=== PATIENT | male | born 1955 | race Caucasian/White ===

== ENCOUNTER 2023-07-26 09:14 | Outpatient (OUT) | payer MEDICARE, OTHER, SELFPAY ==
[2023-07-27 04:07] LABS: PSA, Free 0.48 ng/mL; Prostate Specific Ag 4.8 ng/mL (0.0-4.0)
== END 2023-07-26 09:15 | disposition home or self-care (01) ==
LOC: LAB 09:22
PROVIDERS: PCP Family Medicine; Visit Provider Urology
DX: R97.20 Elevated prostate specific antigen [PSA] (principal)
CPT/HCPCS: 36415; 84153; 84154

== ENCOUNTER 2024-03-10 09:23 | Outpatient (OUT) | payer MEDICARE, OTHER, SELFPAY ==
[2024-03-11 04:08] LABS: PSA, Free 0.48 ng/mL; Prostate Specific Ag 3.8 ng/mL (0.0-4.0)
== END 2024-03-10 09:24 | disposition home or self-care (01) ==
LOC: LAB 09:26
PROVIDERS: PCP Family Medicine; Visit Provider Urology
DX: R97.20 Elevated prostate specific antigen [PSA] (principal)
CPT/HCPCS: 36415; 84153; 84154

== ENCOUNTER 2024-06-30 10:41 | Outpatient (OUT) | payer MEDICARE, OTHER, SELFPAY ==
--- OUTSIDE RECORDS SUMMARY | 2024-06-30 10:47 | XMS_ITS | CCD ---
Author Organization [facility] Care Team Providers Care Automobile Body Repairer Name Role Phone Edouard Ly Primary Care Physician JESSE .TELMA Admitting Unavailable LUE ., TELMA Flower Attending Unavailable ELIASY ., DR NUNN Primary Care Unavailable LUE ., TELMA Flower Consulting Unavailable HOY ., DR NUNN Admitting Unavailable HOY ., DR NUNN Attending Unavailable HOY ., DR NUNN Consulting Unavailable HOY ., DR NUNN Admitting Unavailable HOY ., DR NUNN Attending Unavailable HOY ., DR NUNN Consulting Unavailable MD Telma Molina Attending Provider MD Edouard Ly Primary Care Provider [phone] Edouard Ly Primary Care Unavailable Telma Molina Attending Unavailable Telma Molina Admitting Unavailable Telma Molina. Attending Unavailable Telma Molina. Attending Unavailable Telma Molina Attending Unavailable Allergies Allergy Classification Reported Allergen(s) Allergy Type Date of Onset Reaction(s) Facility (1 source) No Known Medication Allergies; Translations: [No Known Medication Allergies] Propensity to adverse reactions (disorder) [facility] Repository Medications Current Medications Medication Drug Class(es) Dates Sig (Normalized) Sig (Original) cefuroxime 250 mg oral tablet (4 sources) Cephalosporin Antibacterial Start: 08-15-20 cefuroxime 250 mg Tab Refills(s) 0 Start Date: 08/15/22 Status: Ordered hydroCHLOROthiazide 25 mg oral tablet (4 sources) Thiazide Diuretic Start: 08-15-20 hydrochlorothiazide 25 mg Tab Refills(s) 0 Start Date: 08/15/22 Status: Ordered meloxicam 15 mg oral tablet (4 sources) Nonsteroidal Anti-inflammatory Drug Start: 08-15-20 meloxicam 15 mg Tab Refills(s) 0 Start Date: 08/15/22 Status: Ordered metoprolol tartrate 100 mg oral tablet (4 sources) beta-Adrenergic Oj Start: 08-15-20 take 1 mg by mouth twice daily metoprolol tartrate 100 mg Tab mg tab(s), Oral, BID, Refills(s) 0 Start Date: 08/15/22 Status: Ordered olmesartan medoxomil 40 mg oral tablet (4 sources) Angiotensin 2 Receptor Oj Start: 08-15-20 olmesartan 40 mg Tab Refills(s) 0 Start Date: 08/15/22 Status: Ordered potassium chloride 10 meq oral tablet (4 sources) Start: 08-15-20 Potassium Chloride (Eqv-K-Tab) 10 mEq oral tablet, extended release Refills(s) 0 Start Date: 08/15/22 Status: Ordered Problems Active Problems Problem Classification Problem Date Documented Date Episodic/Chronic Disorders of lipid metabolism (6 sources) Pure hypercholesterolemia; Translations: [Pure hypercholesterolemia, unspecified] Onset: 07-11-2022 08-15-2022 Chronic Essential hypertension (5 sources) Essential hypertension; Translations: [Essential (primary) hypertension] Onset: 07-11-2022 08-15-2022 Chronic Osteoarthritis (4 sources) Osteoarthritis Onset: 07-27-2021 08-15-2022 Chronic Other screening for suspected conditions (not mental disorders or infectious disease) (18 sources) Raised prostate specific antigen; Translations: [Elevated prostate specific antigen [PSA]] Onset: 07-10-2022 Episodic Past or Other Problems Problem Classification Problem Date Documented Da te Episodic/Chronic Diabetes mellitus without complication (1 source) Other abnormal glucose; Translations: [OTHER ABNORMAL GLUCOSE] Onset: 07-11-2022 Episodic Other nutritional; endocrine; and metabolic disorders (1 source) Overweight; Translations: [OVERWEIGHT] Onset: 07-11-2022 Episodic Residual codes; unclassified (1 source) Edema, unspecified; Translations: [EDEMA UNSPECIFIED] Onset: 07-11-2022 Episodic Results Test Name Value Interpretation Reference Range Facility Ambulatory Visit Summaryon 0 03-25-2024 Ambulatory Visit Summary Ambulatory Visit Summary MARK CHAVEZ :1955 Visit Date:03/25/2024 Ambulatory Visit Instructions Your Diagnosis Elevated PSA Your Care Team Attending Physician - Telma Molina MD Primary Care Physician - Edouard Ly MD This Is Your Medications List Contact prescribing physician if questions or concerns cefuroxime (cefuroxime 250 mg Tab) hydrochlorothiazide (hydrochlorothiazide 25 mg Tab) meloxicam (meloxicam 15 mg Tab) metoprolol (metoprolol tartrate 100 mg Tab) olmesartan (olmesartan 40 mg Tab) potassium chloride (Potassium Chloride (Eqv-K-Tab) 10 mEq oral tablet, extended release) Procedures Performed Hernia, History of hip surgery, Knee. Discharge Vitals Heart Rate (Peripheral) 55 Respiratory Rate 16 Blood Pressure 126/86 Height 184 cm Height 72 in Weight 107 kg Weight 235.4 lb BMI 31.6 What to do next Scheduled Follow-Up Appointments Saturday 8:45 AM EST With: Jesse ALONSO, Telma Mitchell Where: [facility] Urology Office/Clinic Noteon 03-25-2024 Urology Office/Clinic Note Urology Office/Clinic Note Chief Complaint 6 month follow up PSA F&T HPI Staff 6m PSA f/t DX: Elevated PSA *No Urology Meds NEG MRI Prostate 10/07/23 PSA f/t 03/10/24- 3.8 & 12.6% Dysuria: denies Incomplete bladder emptying: denies Hematuria: denies visible blood Frequency: once every 2-3 hours, depends on fluid intake Urgency: denies Nocturia: once a night Stream: denies hesitancy, steady stream Leaking: denies Post void dripping: sometimes Wearing pads/ Depends: denies Urge incontinence: denies Stress incontinence: denies Incontinence without Sensory Awareness: denies Abdominal pain: denies Flank pain: denies Sexual complaints: _ History of Present Illness Tests reviewed: reviewed UA, PSA, MRI I have reviewed the previous health record information and history for this patient from Dr. Molina. I have reviewed and verified the staff HPI to be accurate for this encounter. Review of Systems PHQ Score Initial Depression Screen Score: 0 SCORE ROS - Provider Constitutional: denies weight loss, denies hot flashes. Eyes: denies eye problems. Gastrointestinal: denies nausea, denies vomiting. Cardiovascular: denies chest pain or angina. Integumentary: no dryness Musculoskeletal: denies musculoskeletal symptoms. ENMT: denies otolaryngeal symptoms. Respiratory: no shortness of breath. Heme/Lymph: denies easy bleeding tendency, denies easy bruising tendency. Psychiatric: no confusion, no anxiety. Genitourinary: See HPI. Physical Exam Vitals & Measurements HR: 55(Peripheral) RR: 16 BP: 126/86 HT: 72 in HT: 184 cm WT: 107 kg WT: 235.4 lb BMI: 31.6 General Appearance: alert, no distress, well nourished, well developed male. Assessment/Plan 68 yo male following up to recent PSA level. Not on any blood thinners TEJAL 1, not interested in treatment. 1. Elevated PSA (R97.20: Elevated prostate specific antigen [PSA]) PSA 07/09/22 - 4.25 07/11/22 - 3.30 & 11.8% 01/21/23 - 3.70 & 8.1% 07/26/23 - 4.80 & 10% 03/10/24 - 3.80 & 12.6% PSAD 0.07 [facility] 08/15/22 - very low risk. Prostate MRI 10/07/23 [facility] - Prostate volume 57 mL. Neg for evidence of malignancy. Denies family hx of prostate cancer. Mother in her 90s, states his father in his sleep. IPSS 5 (5). UA today negative for blood and infection. Not taking any prostate medications. No urinary concerns. PSA has decreased from prior and percent free has increased, overall favorable. Will hold off on bx at this time. Will continue to monitor level closely for now. -PSA FT in 6 mos, avoid strenuous activity 4 days prior Follow-up With When Contact Information Jesse ALONSO, Telma Mitchell, URL, [facility] [address], [place] [address]- [phone] Additional Instructions: 6 mos w/ PSA Patient Education Prostate Cancer Screening Radha Salazar, personally scribed for Dr. Molina on 03/25/2024 10:07:52. . Documentation recorded by the scribe, Radha Ortega, accurately reflects the services(s) I performed and decisions made by me. Authenticated by Dr. Molina on 03/25/2024 23:04:51. Problem List/Past Medical History Ongoing Elevated PSA Essential hypertension Osteoarthritis Pure hypercholesterolemia, unspecified Historical No qualifying data Procedure/Surgical History Hernia, History of hip surgery, Knee. Medications cefuroxime 250 mg Tab hydrochlorothiazide 25 mg Tab meloxicam 15 mg Tab metoprolol tartrate 100 mg Tab, Oral, BID olmesartan 40 mg Tab Potassium Chloride (Eqv-K-Tab) 10 mEq oral tablet, extended release Allergies No Known Medication Allergies Social History Tobacco Former smoker, quit more than 30 days ago Tobacco Use:. Former smokeless tobacco user, quit more than 30 days ago Smokeless Tobacco Use:. Stopped age 32 Years. Household tobacco concerns: No. Yes, 03/25/2024 Family History Family history is negative Immunizations Vaccine Date Status Comments SARS-CoV-2 (COVID-19) mRNA-1273 vaccine 06/07/2021 Recorded 2022-08-15: TPV60 SARS-CoV-2 (COVID-19) mRNA-1273 vaccine 05/10/2021 Recorded 2022-08-15: TPV60 Lab Results Ambulatory Point of Care Results Bilirubin Urine Dipstick: Negative (03/25/24 09:11:00) Blood Urine Dipstick: Negative (03/25/24 09:11:00) Glucose Urine Dipstick: Negative (03/25/24 09:11:00) Ketones Urine Dipstick: Negative (03/25/24 09:11:00) Leukocytes Urine Dipstick: Negative (03/25/24 09:11:00) Nitrite Urine Dipstick: Negative (03/25/24 09:11:00) Protein Urine Dipstick: Negative (03/25/24 09:11:00) Specific [place] Urine Dipstick: <=1.005 (03/25/24 09:11:00) Urine Appearance Urine Dipstick: Clear (03/25/24 09:11:00) Urine Color Urine Dipstick: Yellow (03/25/24 09:11:00) Urobilinogen Urine Dipstick: Normal 0.2-1 EU/dl (03/25/24 09:11:00) pH Urine Dipstick: 5.5 (03/25/24 09:11:00) Normal [facility] Comment on above: Result Comment: Elec tronically Signed By: Jesse ALONSO, Telma Mitchell\.br\Date and Time Signed: 03/25/24 23:05 EDT\.br\Electronically Co-Signed By: Radha Ortega\.br\Date and Time Co-Signed: 03/25/24 10:08 EDT Lab Reportson 03-11-2024 Lab Reports [id number] FF Normal [facility] RAD - MRI Reporton RAD - MRI Report [id number] IFF Normal [facility] MR prostate wo/w conon 10-08 MR prostate wo/w con [facility] [place] [address] MRI Report Signed Patient: Mark Chavez MR#: [id number] 34 : 1955 Acct:[id number] Age/Sex: 68 / M ADM Date: 10/07/23 Loc: MR Room: Type: [facility] Attending Dr: Telma Molina MD Copies to: Telma Molina MD Ordering Provider: Telma Molina MD Date of Service: 10/07/23 MR/MR prostate wo/w con: R97.20 EXAMINATION: MR prostate wo/w con HISTORY: Elevated PSA COMPARISON: NONE TECHNIQUE: Multiparametric imaging of the prostate gland was performed with IV contrast. FINDINGS: Suboptimal evaluation due to blooming artifact from the patient's left hip prosthesis. Prostate Dimensions: 5.1 x 4.1 x 5.0 cm. Prostate Volume: 57 mL Peripheral Zone: Heterogenous inT2 signal suggestive of prior prostatitis. No suspicious T2 or ADC map abnormality is identified to suggest prostate malignancy. Central/Transitional Zone: BPH changes. Seminal Vesicles: Unremarkable Neurovascular bundles: Unremarkable. Lymphadenopathy: No evidence of lymphadenopathy. Bladder: No focal lesion. Bowel: Diverticulosis. Peritoneal Cavity: No free fluid. Bones: No suspicious bony lesion. MR/MR prostate wo/w con IMPRESSION: No MRI evidence of clinically significant prostate cancer. Impression dictated by: Onesimo Phillips Jr., D.O.10/08/2023 9:35 AM Dictation Location: [place] [address] Transcribed By: [facility] 10/08/23 0935 Dictated By: Onesimo Phillips Jr, DO 10/08/23 0917 Signed By: 10/08/2335 [facility] ISTAT XRay CREon 10-07-2023 Creatinine [Mass/Vol] 1.4 mg/dL High 0.6-1.3 [facility] Comment on above: Result Comment: ER/E SD physician is notified/shown all ISTAT results. Critical values may be confirmed by laboratory testing if deemed necessary by ER attending doctor. Performed By: #### I SCRE #### [address] ISTAT GFR 55.432 [facility] Comment on above: Result Comment: PERF ORMED BY: [place] [address] PATHOLOGIST [employer]CH[employer]IC JIGNESH SEARS M.D. Performed By: #### I SCRE #### [facility] [address] [place] [address] Provider Letteron 09-25-2023 Provider Letter (Inserted Image. Rocio ble to display) September 25, 2023 MARK CHAVEZ [address] [place] [id number] : 1955 [address] Phillips with radiology who recommends low residual diet starting 3 days prior to MRI (see list below). Foods Allowed on a Low Residue Diet refined grain products like white breads, cereals, and pastas (look for less than 2g of fibre per serving on label) white rice juices without pulp or seeds meats, fish, and eggs oil, margarine, butter, mayonnaise, and salad dressings fruit without peels or seeds and certain canned or well-cooked fruit (e.g., peeled apples, seedless peeled grapes, banana, cantaloupe, etc.) some soft, cooked vegetables (e.g., beets, beans, carrots, cucumber, eggplant, mushrooms, etc.) limit of 2 cups/day: milk, yogurt, puddings, cream based soups Foods to Avoid on a Low Residue Diet whole grain breads, cereals, and pastas (e.g., oatmeal, millet, buckwheat, flax, popcorn) raw vegetables the following vegetables, whether cooked or raw: broccoli, cauliflower, [place] sprouts, cabbage, kale, [place] chard dried fruit, berries, and other fruit with skin or seeds tough meats with gristle crunchy peanut butter (smooth is okay) seeds and nuts dried beans, peas, and lentils Normal [facility] Screenson 08-01-2023 Screens [id number] Normal [facility] Screens [id number] IFF Normal [facility] Ambulatory Visit Summaryon 1 09-30-2022 Ambulatory Visit Summary MARK CHAVEZ :1955 Visit Date:07/31/2023 Ambulatory Visit Instructions Your Diagnosis Elevated PSA Tests Performed Urnls Dip Stick Auto w/o Microscopy POC [id number] MRI Pelvis (Soft Tissue) w/ + w/o contrast -- Results Pending -- Please visit your patient portal for your results or contact your primary care physician. Your Care Team Attending Physician - Telma Molina MD Primary Care Physician - Edouard Ly MD This Is Your Medications List Contact prescribing physician if questions or concerns cefuroxime (cefuroxime 250 mg Tab) hydrochlorothiazide (hydrochlorothiazide 25 mg Tab) meloxicam (meloxicam 15 mg Tab) metoprolol (metoprolol tartrate 100 mg Tab) olmesartan (olmesartan 40 mg Tab) potassium chloride (Potassium Chloride (Eqv-K-Tab) 10 mEq oral tablet, extended release) Procedures Performed Hernia, History of hip surgery, Knee. Discharge Vitals Heart Rate (Peripheral) 70 Respiratory Rate 16 Blood Pressure 136/84 Height 184 cm Height 72 in Weight 107 kg Weight 235.4 lb BMI 31.6 What to do next You Need to Schedule the Following Appointments Follow Up with Jesse ALONSO, Telma Mitchell, QUIN, URO When: Where: Medications What How Much When Instructions Unchanged cefuroxime (cefuroxime 250 mg Tab) Contact prescribing physician if questions or concerns Unchanged hydrochlorothiazide (hydrochlorothiazide 25 mg Tab) Contact prescribing physician if questions or concerns Unchanged meloxicam (meloxicam 15 mg Tab) Contact prescribing physician if questions or concerns Unchanged metoprolol (metoprolol tartrate 100 mg Tab) 2 times a day Contact prescribing physician if questions or concerns Unchanged olmesartan (olmesartan 40 mg Tab) Contact prescribing physician if questions or concerns Unchanged potassium chloride (Potassium Chloride (Eqv-K-Tab) 10 mEq oral tablet, extended release) Contact prescribing physician if questions or concerns Test Results Urnls Dip Stick Auto w/o Microscopy POC [id number] (07/31/2023) Bilirubin Urine Dipstick - Negative Blood Urine Dipstick - Negative Glucose Urine Dipstick - Negative Ketones Urine Dipstick - Negative Leukocytes Urine Dipstick - Negative Nitrite Urine Dipstick - Negative Protein Urine Dipstick - Negative Specific [place] Urine Dipstick - 1.015 Urine Appearance Urine Dipstick - Clear Urine Color Urine Dipstick - Yellow Urobilinogen Urine Dipstick - Normal 0.2-1 EU/dl pH Urine Dipstick - 7 Allergies No Known Medication Allergies Problems Ongoing - Any problem that you are currently receiving treatment for. Elevated PSA Essential hypertension Osteoarthritis Pure hypercholesterolemia, unspecified Patient Survey You may receive a survey via text or e-mail asking about your office visit. Please share your experience with us by completing your survey. We appreciate your feedback and thank you for choosing us for your care. Education Materials Prostate Cancer Screening Prostate cancer screening is testing that is done to check for the presence of prostate cancer in men. The prostate gland is a walnut-sized gland that is located below the bladder and in front of the rectum in males. The function of the prostate is to add fluid to semen during ejaculation. Prostate cancer is one of the most common types of cancer in men. Who should have prostate cancer screening? Screening recommendations vary based on age and other risk factors, as well as between the professional organizations who make the recommendations. In general, screening is recommended if: ? You are age 50 to 70 and have an average risk for prostate cancer. You should talk with your health care provider about your need for screening and how often screening should be done. Because most prostate cancers are slow growing and will not cause , screening in this age group is generally reserved for men who have a 10- to 15-year life expectancy. ? You are younger than age 50, and you have these risk factors: ? Having a father, brother, or uncle who has been diagnosed with prostate cancer. The risk is higher if your family member's cancer occurred at an early age or if you have multiple family members with prostate cancer at an early age. ? Being a male who is Black or is of [place] or sub-Saharan descent. In general, screening is not recommended if: ? You are younger than age 40. ? You are between the ages of 40 and 49 and you have no risk factors. ? You are 70 years of age or older. At this age, the risks that screening can cause are greater than the benefits that it may provide. If you are at high risk for prostate cancer, your health care provider may recommend that you have screenings more often or that you start screening at a younger age. How is screening for prostate cancer done? The recommended prostate cancer screening test is a blood test called the prostate-specif (more content not included)... Normal [facility] Patient Educationon 07-31-20 Patient Education Oncology Prostate Cancer Screening Prostate cancer screening is testing that is done to check for the presence of prostate cancer in men. The prostate gland is a walnut-sized gland that is located below the bladder and in front of the rectum in males. The function of the prostate is to add fluid to semen during ejaculation. Prostate cancer is one of the most common types of cancer in men. Who should have prostate cancer screening? Screening recommendations vary based on age and other risk factors, as well as between the professional organizations who make the recommendations. In general, screening is recommended if: ? You are age 50 to 70 and have an average risk for prostate cancer. You should talk with your health care provider about your need for screening and how often screening should be done. Because most prostate cancers are slow growing and will not cause , screening in this age group is generally reserved for men who have a 10- to 15-year life expectancy. ? You are younger than age 50, and you have these risk factors: ? Having a father, brother, or uncle who has been diagnosed with prostate cancer. The risk is higher if your family member's cancer occurred at an early age or if you have multiple family members with prostate cancer at an early age. ? Being a male who is Black or is of [place] or sub-Saharan descent. In general, screening is not recommended if: ? You are younger than age 40. ? You are between the ages of 40 and 49 and you have no risk factors. ? You are 70 years of age or older. At this age, the risks that screening can cause are greater than the benefits that it may provide. If you are at high risk for prostate cancer, your health care provider may recommend that you have screenings more often or that you start screening at a younger age. How is screening for prostate cancer done? The recommended prostate cancer screening test is a blood test called the prostate-specific antigen (PSA) test. PSA is a protein that is made in the prostate. As you age, your prostate naturally produces more PSA. Abnormally high PSA levels may be caused by: ? Prostate cancer. ? An enlarged prostate that is not caused by cancer (benign prostatic hyperplasia, or BPH). This condition is very common in older men. ? A prostate gland infection (prostatitis) or urinary tract infection. ? Certain medicines such as male hormones (like testosterone) or other medicines that raise testosterone levels. A rectal exam may be done as part of prostate cancer screening to help provide information about the size of your prostate gland. When a rectal exam is performed, it should be done after the PSA level is drawn to avoid any effect on the results. Depending on the PSA results, you may need more tests, such as: ? A physical exam to check the size of your prostate gland, if not done as part of screening. ? Blood and imaging tests. ? A procedure to remove tissue samples from your prostate gland for testing (biopsy). This is the only way to know for certain if you have prostate cancer. What are the benefits of prostate cancer screening? ? Screening can help to identify cancer at an early stage, before symptoms start and when the cancer can be treated more easily. ? There is a small chance that screening may lower your risk of dying from prostate cancer. The chance is small because prostate cancer is a slow-growing cancer, and most men with prostate cancer from a different cause. What are the risks of prostate cancer screening? The main risk of prostate cancer screening is diagnosing and treating prostate cancer that would never have caused any symptoms or problems. This is called overdiagnosisand overtreatment. PSA screening cannot tell you if your PSA is high due to cancer or a different cause. A prostate biopsy is the only procedure to diagnose prostate cancer. Even the results of a biopsy may not tell you if your cancer needs to be treated. Slow-growing prostate cancer may not need any treatment other than monitoring, so diagnosing and treating it may cause unnecessary stress or other side effects. Questions to ask your health care provider ? When should I start prostate cancer screening? ? What is my risk for prostate cancer? ? How often do I need screening? ? What type of screening tests do I need? ? How do I get my test results? ? What do my results mean? ? Do I need treatment? Where to find more information ? The [place] [employer]: www.cancer.org ? [employer]: www.auanet.org Contact a health care provider if: ? You have difficulty urinating. ? You have pain when you urinate or ejaculate. ? You have blood in your urine or semen. ? You have pain in your back or in the area of your prostate. Summary ? Prostate cancer is a common type of cancer in men. The prostate gland is located below the bladder and in front of the rectum. This gland adds flu (more content not included)... Normal [facility] Urology Office/Clinic Noteon 07-31-2023 Urology Office/Clinic Note Chief Complaint 6m PSA F/T HPI Staff 6m PSA F/T DX:Elevated PSA *No Urology Meds PSA 07/26/23- 4.8 & 10.0% Still getting up 1-3x/night to void. Increased with alcohol intake in the evening. Denies complaints with urinary stream. No concerns at this time. IPSS 5 History of Present Illness Tests reviewed: Reviewed UA and PSA. I have reviewed the previous health record information and history for this patient from Dr. Molina. I have reviewed and verified the staff HPI to be accurate for this encounter. There have been no associated fever, chills, flank pain, or blood in the urine. Denies any urinary infections since last encounter. Review of Systems ROS - Provider Constitutional: denies weight loss, denies hot flashes. Eyes: denies eye problems. Gastrointestinal: denies nausea, denies vomiting. Cardiovascular: denies chest pain or angina. Integumentary: no dryness Musculoskeletal: denies musculoskeletal symptoms. ENMT: denies otolaryngeal symptoms. Respiratory: no shortness of breath. Heme/Lymph: denies easy bleeding tendency, denies easy bruising tendency. Psychiatric: no confusion, no anxiety. Genitourinary: See HPI. Physical Exam Vitals & Measurements HR: 70(Peripheral) RR: 16 BP: 136/84 HT: 72 in HT: 184 cm WT: 107 kg WT: 235.4 lb BMI: 31.6 General Appearance: alert, no distress, well nourished, well developed male. Genitourinary: Flank Pain: none. Bladder: nonpalpable. Prostate: mildly enlarged, no firm nodules, non tender Assessment/Plan 68 yo male following up to recent PSA level. Not on any blood thinners Portions of this record may have been created with voice recognition artificial intelligence software, specifically [employer], iodine and or [employer]. Substitutions may have occurred due to the inherent limitations of voice recognition and artificial intelligence software. 1. Elevated PSA (R97.20: Elevated prostate specific antigen [PSA]) PSA: 07/09/22 - 4.25 07/11/22 - 3.30 & 11.8% 01/21/23 - 3.70 & 8.1% 07/26/23 - 4.8 & 10% Select MDx 08/15/22 - very low risk. Denies family hx of prostate cancer. Mother in her 90s, states his father in his sleep. UA today neg IPSS 5 (2) Not taking any prostate medications. No urinary concerns. Low percent free is unfavorable. Pt does understand there is a chance of prostate cancer being present. Discussed continuing close surveillance vs scheduling an MRI which could indicate bx if there are suspected lesions. -Pt does have knee replaced. Unsure if it is MRI compatible. Does set off metal detectors when the pt goes through them. Repeat PSA vs bx if pt is unable to have MRI done. We discussed risks of MRI fusion prostate biopsy approaches including transrectal and transperineal. Risks of the procedure were discussed to include but not be limited to bleeding, pain, infection (higher, including sepsis with transrectal approach), difficulties with urination, injury to the urethra, prostate or bladder or surrounding tissues, injury from positioning on the table, swelling and bruising of the skin, and need for further procedures. MAURISIO today: mildly enlarged, normal prostate -Obtain MRI prostate. Call with results and schedule MRI fusion TP biopsy if lesion noted. If neg, pt to determine if he wants to proceed with standard bx vs repeat PSA F/T in 6 mths I spent 30 minutes today with the patient: reviewing tests in preparation to see and discuss them with the patient, documenting clinical information in the electronic health records, and care coordination. Time was spent performing a medical exam and evaluation, counseling and educating the patient, and ordering tests in caring for the patient. Follow-up With When Contact Information Jesse ALONSO, Telma Mitchell, URL, URO Additional Instructions: MRI Patient Education Prostate Cancer Screening I, Naya Llanos, personally scribed for Dr. Molina on 07/31/2023 09:43:03. . Documentation recorded by the scribe, Juana Llanos, accurately reflects the services(s) I performed and decisions made by me. Authenticated by Dr. Molina on 07/31/2023 16:21:32. Problem List/Past Medical History Ongoing Elevated PSA Essential hypertension Osteoarthritis Pure hypercholesterolemia, unspecified Historical No qualifying data Procedure/Surgical History Hernia, History of hip surgery, Knee. Medications cefuroxime 250 mg Tab hydrochlorothiazide 25 mg Tab meloxicam 15 mg Tab metoprolol tartrate 100 mg Tab, Oral, BID olmesartan 40 mg Tab Potassium Chloride (Eqv-K-Tab) 10 mEq oral tablet, extended release Allergies No Known Medication Allergies Social History Tobacco Former smoker, quit more than 30 days ago Tobacco Use:. Former smokeless tobacco user, quit more than 30 days ago Smokeless Tobacco Use:. Stopped age 32 Years. Household tobacco concerns: No. Yes, 07/31/2023 Family Hist (more content not included)... Normal [facility] Comment on above: Result Comment: Elec tronically Signed By: Telma Molina MD\.br\Date and Time Signed: 07/31/23 16:21 EST\.br\Electronically Co-Signed By: Naya Llanos\.br\Date and Time Co-Signed: 07/31/23 09:43 EST Lab Reportson 07-30-2023 Lab Reports [id number] IFF Normal [facility] PSA, FREE AND TOTAL RATIOon 01-22-2023 % Free PSA 8.1 % Normal [facility] Comment on above: Result Comment: The table below lists the probability of prostate cancer for men with non-suspicious MAURISIO results and total PSA between 4 and 10 ng/mL, by patient age (Nkechi et al, LALO 1998, 279:1542). % Free PSA 50-64 yr 65-75 yr 0.00-10.00% 56% 55% 10.01-15.00% 24% 35% 15.01-20.00% 17% 23% 20.01-25.00% 10% 20% >25.00% 5% 9% Please note: Nkechi et al did not make specific recommendations regarding the use of percent free PSA for any other population of men. Performed By: #### P SAFREE #### [facility] [address] [place] [address] Dr. Cheryl Pickering Prostate specific Ag [Mass/Vol] 3.7 ng/mL Normal 0.0-4.0 [facility] Comment on above: Result Comment: Denise arora ECLIA methodology. . According to the [employer], Serum PSA should decrease and remain at undetectable levels after radical prostatectomy. The AUA defines biochemical recurrence as an initial PSA value 0.2 ng/mL or greater followed by a subsequent confirmatory PSA value 0.2 ng/mL or greater. Values obtained with different assay methods or kits cannot be used interchangeably. Results cannot be interpreted as absolute evidence of the presence or absence of malignant disease. Performed By: #### P SAFREE #### [facility] [address] [address] [address] Cheryl Pickering PSA, Free 0.30 ng/mL Normal N/A [facility] Comment on above: Result Comment: Denise arora ECLIA methodology. Performed By: #### P SAFREE #### [facility] [address] [address] [address] Cheryl Pickering PSA, FREE AND TOTAL RATIOon 07-11-2022 % Free PSA 11.8 % Normal [facility] Comment on above: Result Comment: The table below lists the probability of prostate cancer for men with non-suspicious MAURISIO results and total PSA between 4 and 10 ng/mL, by patient age (Nkechi et al, LALO 1998, [id number]). % Free PSA 50-64 yr 65-75 yr 0.00-10.00% 56% 55% 10.01-15.00% 24% 35% 15.01-20.00% 17% 23% 20.01-25.00% 10% 20% >25.00% 5% 9% Please note: Nkechi et al did not make specific recommendations regarding the use of percent free PSA for any other population of men. Performed By: #### P SAFREE #### [facility] [address] [place] [address] Dr. Cheryl Pickering Prostate specific Ag [Mass/Vol] 3.3 ng/mL Normal 0.0-4.0 [facility] Comment on above: Result Comment: Roch u[place]es ECLIA methodology. . According to the [employer], Serum PSA should decrease and remain at undetectable levels after radical prostatectomy. The AUA defines biochemical recurrence as an initial PSA value 0.2 ng/mL or greater followed by a subsequent confirmatory PSA value 0.2 ng/mL or greater. Values obtained with different assay methods or kits cannot be used interchangeably. Results cannot be interpreted as absolute evidence of the presence or absence of malignant disease. Performed By: #### P SAFREE #### [facility] [address] [place] [address] Dr. Cheryl Pickering PSA, Free 0.39 ng/mL Normal N/A [facility] Comment on above: Result Comment: [place] ECLIA methodology. Performed By: #### P SAFREE #### [facility] [address] [place] [address] Dr. Cheryl Pickering INSULINon 07-10-2022 Insulin 5.9 uIU/mL Normal 2.6-24.9 [facility] Comment on above: Performed By: #### I NSULIN #### [facility] [address] [place] [address] Dr. Cheryl Pickering OCC BLD IMMUNO SCREENon 06-23 OCCULT BLOOD Negative Normal NEGATIVE [facility] Comment on above: Performed By: #### L IPID, TSH, T7, CMP, URIC #### [facility] [address] [place] [address] Dr. Cheryl Pickering CBC AUTO DIFFon 07-09-2022 BASO # 0.1 103/ul Normal 0.0-0.1 [facility] Comment on above: Performed By: #### C BC #### [facility] [address] [place] [address] Dr. Cherly Pickering Basophils/100 WBC (Bld) 1.1 % Normal 0.2-2.0 [facility] Comment on above: Performed By: #### C BC #### [facility] [address] [place] [address] Dr. Cheryl Pickering EO # 0.2 103/ul Normal 0.0-0.7 [facility] Comment on above: Performed By: #### C BC #### [facility] [address] [place] [address] Dr. Cheryl Pickering Eosinophils/100 WBC (Bld) 3.3 % Normal 0.9-7.0 [facility] Comment on above: Performed By: #### C BC #### [facility] [address] [place] [address] Dr. Cheryl Pickering Erythrocyte distribution width (RBC) [Ratio] 12.0 % Normal 11.0-15.0 [facility] Comment on above: Performed By: #### C BC #### [facility] [address] [place] [address] Dr. Cheryl Pickering Hematocrit (Bld) [Volume fraction] 42.0 % Normal 42.0-54.0 [facility] Comment on above: Performed By: #### C BC #### [facility] [address] [place] [address] Dr. Cheryl Pickering Hemoglobin (Bld) [Mass/Vol] 14.7 g/dL Normal 14.0-18.0 [facility] Comment on above: Performed By: #### C BC #### [facility] [address] [place] [address] Dr. Cheryl Pickering IG # 0.03 10e3/ul Normal 0.00-0.03 [facility] Comment on above: Performed By: #### C BC #### [facility] [address] [place] [address] Dr. Cheryl Pickering IG % 0.5 % Normal 0.0-0.5 [facility] Comment on above: Performed By: #### C BC #### [facility] [address] [place] [address] Dr. Cheryl Pickering LYMPH # 1.4 103/ul Normal 1.2-3.8 [facility] Comment on above: Performed By: #### C BC #### [facility] [address] [place] [address] Dr. Cheryl Pickering Lymphocytes/100 WBC (Bld) 23.6 % Normal 20.5-60.0 [facility] Comment on above: Performed By: #### C BC #### [facility] [address] [place] [address] Dr. Cheryl Pickering MANUAL DIFF REQ NO Normal [facility] Comment on above: Performed By: #### C BC #### [facility] [address] [place] [address] Dr. Cheryl Pickering MCH (RBC) [Entitic mass] 33.3 pg Normal 25.9-34.0 [facility] Comment on above: Performed By: #### C BC #### [facility] [address] [place] [address] Dr. Cheryl Pickering MCHC (RBC) [Mass/Vol] 35.0 g/dL Normal 29.9-35.2 [facility] Comment on above: Performed By: #### C BC #### [facility] [address] [place] [address] Dr. Cheryl Pickering MCV (RBC) [Entitic vol] 95.2 fL Critically high 80.0-94.0 [facility] Comment on above: Performed By: #### C BC #### [facility] [address] [place] [address] Dr. Cheryl Pickering MONO # 0.7 103/ul Normal 0.3-0.8 [facility] Comment on above: Performed By: #### C BC #### [facility] [address] [place] [address] Dr. Cheryl Pickering Monocytes/100 WBC (Bld) 12.1 % Critically high 1.7-12.0 [facility] Comment on above: Performed By: #### C BC #### [facility] [address] [place] [address] Dr. Cheryl Pickering NEUT # 3.4 103/ul Normal 1.4-6.5 [facility] Comment on above: Performed By: #### C BC #### [facility] [address] [place] [address] Dr. Cheryl Pickering Neutrophils/100 WBC (Bld) 59.4 % Normal 43.0-75.0 [facility] Comment on above: Performed By: #### C BC #### [facility] [address] [place] [address] Dr. Cheryl Pickering Platelet mean volume (Bld) [Entitic vol] 9.3 fL Critically low 9.5-13.5 [facility] Comment on above: Performed By: #### C BC #### [facility] [address] [place] [address] Dr. Cheryl Pickering PLT 236 103/ul Normal 150-450 [facility] Comment on above: Performed By: #### C BC #### [facility] [address] [place] [address] Dr. Cheryl Pickering RBC 4.41 106/ul Critically low 4.70-6.[address] [facility] Comment on above: Performed By: #### C BC #### [facility] [address] [place] [address] Dr. Cheryl Pickering WBC 5.7 103/ul Normal 4.0-11.0 [facility] Comment on above: Performed By: #### C BC #### [facility] [address] [place] [address] Dr. Cheryl Pickering FREE THYROXINE INDEX T7on FTI 2.59 Normal 1.30-4.50 [facility] Comment on above: Performed By: #### L IPID, TSH, T7, CMP, URIC #### [facility] [address] [address] [address] Cheryl Pickering T3U 35.0 % Normal 33.0-40.0 [facility] Comment on above: Performed By: #### L IPID, TSH, T7, CMP, URIC #### [facility] [address] [address] [address] Cheryl Pickering T4 [Mass/Vol] 7.40 ug/dL Normal 4.50-12.10 [facility] Comment on above: Performed By: #### L IPID, TSH, T7, CMP, URIC #### [facility] [address] [place] [address] Dr. Cheryl Pickering GLYCOHEMOGLOBIN A1Con 2021 ADA RECOMMENDATION SEE BELOW Normal [facility] Comment on above: Result Comment: ADA RECOMMENDED LIMIT 4.0 - 6.0 ADA THERAPEUTIC TARGET < 7.0 ACTION SUGGESTED > 7.0 Performed By: #### L IPID, TSH, T7, CMP, URIC #### [facility] [address] [address] [address] Cheryl Pickering Glucose [Mass/Vol] 111 mg/dL Normal [facility] Comment on above: Performed By: #### L IPID, TSH, T7, CMP, URIC #### [facility] [address] [address] [address] Cheryl Pickering HbA1c (Bld) [Mass fraction] 5.5 % Normal 4.5-6.2 [facility] Comment on above: Performed By: #### L IPID, TSH, T7, CMP, URIC #### [facility] [address] [place] [address] Dr. Cheryl Pickering LIPID PROFILEon 07-09-2022 CHOL-HDL RATIO NORM SEE BELOW Normal [facility] Comment on above: Result Comment: 3.3 - 4.4 LOW RISK 4.4 - 7.1 AVERAGE RISK 7.1 - 11.0 MODERATE RISK >11.0 HIGH RISK Performed By: #### L IPID, TSH, T7, CMP, URIC #### [facility] [address] [address] [address] Cheryl Pickering Cholesterol [Mass/Vol] 220 mg/dL Critically high <=200 [facility] Comment on above: Performed By: #### L IPID, TSH, T7, CMP, URIC #### [facility] [address] [address] [address] Cheryl Pickering Cholesterol in HDL [Mass/Vol] 44 mg/dL Normal 40-60 [facility] Comment on above: Performed By: #### L IPID, TSH, T7, CMP, URIC #### [facility] [address] [address] [address] Cheryl Pickering Cholesterol in LDL [Mass/Vol] 146.6 mg/dL Normal [facility] Comment on above: Performed By: #### L IPID, TSH, T7, CMP, URIC #### [facility] [address] [address] [address] Cheryl Pickering Cholesterol.total/Ch olesterol in HDL [Mass ratio] 5.0 {ratio} Normal [facility] Comment on above: Performed By: #### L IPID, TSH, T7, CMP, URIC #### [facility] [address] [address] [address] Cheryl Pickering HDL NORMAL > or = 60 mg/dl - LO W CARDIOVASCULAR RISK <40 mg/dl - HIGH CARDIOVASCULAR RISK Normal [facility] Comment on above: Performed By: #### L IPID, TSH, T7, CMP, URIC #### [facility] [address] [address] [address] Cheryl Pickering LDL CALC NORMAL SEE BELOW Normal [facility] Comment on above: Result Comment: <100 mg/dl OPTIMAL 100 - 129 mg/dl NEAR OR ABOVE OPTIMAL 130 - 159 mg/dl BORDERLINE HIGH 160 - 189 mg/dl HIGH >190 mg/dl VERY HIGH Performed By: #### L IPID, TSH, T7, CMP, URIC #### [facility] [address] [address] [address] Cheryl Pickering Triglyceride [Mass/Vol] 147 mg/dL Normal <=150 [facility] Comment on above: Performed By: #### L IPID, TSH, T7, CMP, URIC #### [facility] [address] [address] [address] Cheryl Pickering VLDL CALC 29.4 mg/dL Normal [facility] Comment on above: Performed By: #### L IPID, TSH, T7, CMP, URIC #### [facility] [address] [address] [address] Cheryl Pickering PROF 14(COMP METB)on 022 Albumin [Mass/Vol] 3.9 g/dL Normal 3.4-5.[address] [facility] Comment on above: Performed By: #### L IPID, TSH, T7, CMP, URIC #### [facility] [address] [place] [address] Dr. Cheryl Pickering Albumin/Globulin [Mass ratio] 1.1 {ratio} Normal [facility] Comment on above: Performed By: #### L IPID, TSH, T7, CMP, URIC #### [facility] [address] [place] [address] Dr. Cheryl Pickering ALP [Catalytic activity/Vol] 57 U/L Normal 46-116 [facility] Comment on above: Performed By: #### L IPID, TSH, T7, CMP, URIC #### [facility] [address] [place] [address] Dr. Cheryl Pickering ALT [Catalytic activity/Vol] 21 U/L Normal 16-63 [facility] Comment on above: Performed By: #### L IPID, TSH, T7, CMP, URIC #### [facility] [address] [address] [address] Cheryl Pickering Anion gap [Moles/Vol] 10.4 mmol/L Normal [facility] Comment on above: Performed By: #### L IPID, TSH, T7, CMP, URIC #### [facility] [address] [place] [address] Dr. Cheryl Pickering AST [Catalytic activity/Vol] 21 U/L Normal 15-37 [facility] Comment on above: Performed By: #### L IPID, TSH, T7, CMP, URIC #### [facility] [address] [place] [address] Dr. Cheryl Pickering Bilirubin [Mass/Vol] 0.8 mg/dL Normal 0.2-1.0 [facility] Comment on above: Performed By: #### L IPID, TSH, T7, CMP, URIC #### [facility] [address] [place] [address] Dr. Cheryl Pickering Calcium [Mass/Vol] 10.1 mg/dL Normal 8.5-10.[address] [facility] Comment on above: Performed By: #### L IPID, TSH, T7, CMP, URIC #### [facility] [address] [place] [address] Dr. Cheryl Pickering Chloride [Moles/Vol] 103 mmol/L Normal 98-107 [facility] Comment on above: Performed By: #### L IPID, TSH, T7, CMP, URIC #### [facility] [address] [place] [address] Dr. Cheryl Pickering CO2 [Moles/Vol] 28.3 mmol/L Normal 21.0-32.0 [facility] Comment on above: Performed By: #### L IPID, TSH, T7, CMP, URIC #### [facility] [address] [place] [address] Dr. Cheryl Pickering Creatinine [Mass/Vol] 1.26 mg/dL Normal 0.70-1.30 [facility] Comment on above: Performed By: #### L IPID, TSH, T7, CMP, URIC #### [facility] [address] [place] [address] Dr. Cheryl Pickering EGFR-AF LAO >60 Normal >=60 [facility] Comment on above: Performed By: #### L IPID, TSH, T7, CMP, URIC #### [facility] [address] [place] [address] Dr. Cheryl Pickering EGFR-NON AF LAO 57 mL/min/1.73m2 Critically low >=60 [facility] Comment on above: Performed By: #### L IPID, TSH, T7, CMP, URIC #### [facility] [address] [address] [address] Cheryl Pickering Globulin (S) [Mass/Vol] 3.5 g/dL Normal [facility] Comment on above: Performed By: #### L IPID, TSH, T7, CMP, URIC #### [facility] [address] [place] [address] Dr. Cheryl Pickering Glucose [Mass/Vol] 103 mg/dL Normal 74-106 [facility] Comment on above: Performed By: #### L IPID, TSH, T7, CMP, URIC #### [facility] [address] [place] [address] Dr. Cheryl Pickering Potassium [Moles/Vol] 4.7 mmol/L Normal 3.5-5.1 [facility] Comment on above: Performed By: #### L IPID, TSH, T7, CMP, URIC #### [facility] [address] [place] [address] Dr. Cheryl Pickering Protein [Mass/Vol] 7.4 g/dL Normal 6.4-8.2 [facility] Comment on above: Performed By: #### L IPID, TSH, T7, CMP, URIC #### [facility] [address] [place] [address] Dr. Cheryl Pickering Sodium [Moles/Vol] 137 mmol/L Normal 136-145 [facility] Comment on above: Performed By: #### L IPID, TSH, T7, CMP, URIC #### [facility] [address] [place] [address] Dr. Cheryl Pickering Urea nitrogen [Mass/Vol] 23.0 mg/dL Critically high 7.0-18.0 [facility] Comment on above: Performed By: #### L IPID, TSH, T7, CMP, URIC #### [facility] [address] [place] [address] Dr. Cheryl Pickering Urea nitrogen/Creatinine [Mass ratio] 18.3 mg/mg Normal [facility] Comment on above: Performed By: #### L IPID, TSH, T7, CMP, URIC #### [facility] [address] [place], [place] [address] Dr. Cheryl Pickering TSHon 07-09-2022 TSH 1.928 uIU/mL Normal 0.358-3.740 [facility] Comment on above: Performed By: #### L IPID, TSH, T7, CMP, URIC #### [facility] [address] [place], [place] [address] Dr. Cheryl Pickering URIC ACID SERUMon 07-09-2022 Urate [Mass/Vol] 8.3 mg/dL Critically high 3.5-7.2 [facility] Comment on above: Performed By: #### L IPID, TSH, T7, CMP, URIC #### [facility] [address] [address] [address] Cheryl Pickering Vital Signs Date Time Vital Sign Value Performing Clinician Faci lity 03-25-2024 09:13-0400 Blood Pressure Location Telma Lue [facility] 03-25-2024 09:13-0400 Diastolic blood pressure 86 mm[Hg] Telma Lue [facility] 03-25-2024 09:13-0400 Heart rate 55 /min Telma Lue [facility] 03-25-2024 09:13-0400 Respiratory rate 16 /min Telma Lue [facility] 03-25-2024 09:13-0400 Systolic blood pressure 126 mm[Hg] Telma Lue [facility] 07-31-2023 08:42-0500 Blood Pressure Location Telma Lue [facility] 07-31-2023 08:42-0500 Diastolic blood pressure 84 mm[Hg] Telma Lue [facility] 07-31-2023 08:42-0500 Heart rate 70 /min Telma Lue [facility] 07-31-2023 08:42-0500 Respiratory rate 16 /min [facility] [facility] 07-31-2023 08:42-0500 Systolic blood pressure 136 mm[Hg] Telma Lue [facility] 01-23-2023 10:09-0400 Blood Pressure Location Telma Lue [facility] 01-23-2023 10:09-0400 Diastolic blood pressure 78 mm[Hg] Telma Lue [facility] 01-23-2023 10:09-0400 Heart rate 80 /min Telma Lue [facility] 01-23-2023 10:09-0400 Respiratory rate 16 /min Telma Lue [facility] 01-23-2023 10:09-0400 Systolic blood pressure 132 mm[Hg] Telma Lue [facility] 08-15-2022 11:00-0500 Blood Pressure Location Telma Lue [facility] 08-15-2022 11:00-0500 Diastolic blood pressure 78 mm[Hg] Telma Lue [facility] 08-15-2022 11:00-0500 Heart rate 66 /min Telma Lue [facility] 08-15-2022 11:00-0500 Respiratory rate 16 /min Telma Jesse [facility] 08-15-2022 11:00-0500 Systolic blood pressure 132 mm[Hg] Telma Jesse [facility] Encounters Encounter Date Encounter Type Care Provider Facility Start: 10-07-2024 ambulatory Telma M. Lue Facility:[facility] Start: 03-25-2024 End: 03-25-2024 ambulatory Telma M. Lue Facility:[facility] Start: 03-25-2024 End: 03-25-2024 Patient encounter procedure Telma ChingToño Milligane [facility] Start: 10-07-2023 End: 10-07-2023 ambulatory Edouard Ly Facility:[facility] Start: 10-07-2023 End: 10-07-2023 ambulatory MD Edouard Ly Work Phone: [facility] Work Phone: Start: 10-07-2023 End: 10-07-2023 Patient encounter procedure MD Edouard Ly Work Phone: [facility] [place] Work Phone: Start: 07-31-2023 End: 07-31-2023 ambulatory Telma MToño Lue Facility:[facility] Start: 07-31-2023 End: 07-31-2023 Patient encounter procedure Telma M. Lue [facility] Start: 01-23-2023 End: 01-23-2023 Patient encounter procedure Telma M. Lue [facility] Start: 01-21-2023 End: 01-22-2023 ambulatory TELMA MOLINA . Facility: Start: 08-15-2022 End: 08-15-2022 Patient encounter procedure Telma Molina [facility] Start: 07-10-2022 End: 07-10-[address] EDOUARD LY . Facility:[facility] Start: 07-09-2022 End: 07-10-[address] EDOUARD LY . Facility: Procedures Date Procedure Procedure Detail Performing Clinician Start: 07-09-2022 PSA screening TELMA MOLINA . Comment on above: Performed By: #### [facility] #### [facility] [address] [place] [address] Dr. Cheryl Pickering Herniated structure (morphologic abnormality) Telma Molina History of operative procedure on hip Telma Molina Knee region structur e (body structure) Telma Molina Plan of Treatment Date Care Activity Detail Author Start: 10-07-2023 MR Prostate WO and W contrast IV [facility] Start: 10-07-2023 MR prostate wo/w con MR prostate wo/ w con [facility] Immunizations Immunization Date Immunization Notes Care Provider Blank oglesby 06-07-2021 SARS-CoV-2 (COVID-19 ) mRNA-1273 vaccine Telma Molina [facility] Comment on above: Result Comment: 2021: [id number] 05-10-2021 SARS-CoV-2 (COVID-19 ) mRNA-1273 vaccine Telma Lue [facility] Comment on above: Result Comment: 2021: [id number] Payers Date Payer Category Payer Self-pay 2022 Medicare [id number] 1957 Medicare [id number] 1957 Medicare [id number] 1957 Unknown [id number] 1955 Unknown [id number] 1957 Unknown [id number] 2.16.84 [id number] 1957 Unknown [id number] 2.16.84 [id number] 1957 Unknown [id number] 2.16.8 [id number] 1957 Unknown [id number] 2.16.8 [id number] 1957 Unknown [id number] 2.16.8 [id number] Unknown [employer] [id number] Unknown [id number] [id number] [id number] Social History Date Type Detail Facility Start: 08-15-2022 End: 03-25-2024 Tobacco smoking status Ex-smoker (finding) [facility] Tobacco smoking status Former sm okeless tobacco user, quit more than 30 days ago [facility] Sex Assigned At Male [facility] Start: 1955 Sex Assigned At Male [facility] Functional Status Date Assessment Result Facility 03-25-2024 Functional Status N/A [facility] 07-31-2023 Functional Status N/A [facility] 01-23-2023 Functional Status N/A [facility] 08-15-2022 Functional Status N/A [facility] Hospital Discharge instructions 03-25-2024 Note Date & Type Note Facility 03-25-2024 Hospital Discharge instructions Patient Education 03/25/2024 10:03:06 Prostate Cancer Screening Prostate Cancer Screening Prostate cancer screening is testing that is done to check for the presence of prostate cancer in men. The prostate gland is a walnut-sized gland that is located below the bladder and in front of the rectum in males. The function of the prostate is to add fluid to semen during ejaculation. Prostate cancer is one of the most common types of cancer in men. Who should have prostate cancer screening? Screening recommendations vary based on age and other risk factors, as well as between the professional organizations who make the recommendations. In general, screening is recommended if: You are age 50 to 70 and have an average risk for prostate cancer. You should talk with your health care provider about your need for screening and how often screening should be done. Because most prostate cancers are slow growing and will not cause , screening in this age group is generally reserved for men who have a 10- to 15-year life expectancy. You are younger than age 50, and you have these risk factors: ?Having a father, brother, or uncle who has been diagnosed with prostate cancer. The risk is higher if your family member's cancer occurred at an early age or if you have multiple family members with prostate cancer at an early age. ?Being a male who is Black or is of [place] or sub-Saharan descent. In general, screening is not recommended if: You are younger than age 40. You are between the ages of 40 and 49 and you have no risk factors. You are 70 years of age or older. At this age, the risks that screening can cause are greater than the benefits that it may provide. If you are at high risk for prostate cancer, your health care provider may recommend that you have screenings more often or that you start screening at a younger age. How is screening for prostate cancer done? The recommended prostate cancer screening test is a blood test called the prostate-specific antigen (PSA) test. PSA is a protein that is made in the prostate. As you age, your prostate naturally produces more PSA. Abnormally high PSA levels may be caused by: Prostate cancer. An enlarged prostate that is not caused by cancer (benign prostatic hyperplasia, or BPH). This condition is very common in older men. A prostate gland infection (prostatitis) or urinary tract infection. Certain medicines such as male hormones (like testosterone) or other medicines that raise testosterone levels. A rectal exam may be done as part of prostate cancer screening to help provide information about the size of your prostate gland. When a rectal exam is performed, it should be done after the PSA level is drawn to avoid any effect on the results. Depending on the PSA results, you may need more tests, such as: A physical exam to check the size of your prostate gland, if not done as part of screening. Blood and imaging tests. A procedure to remove tissue samples from your prostate gland for testing (biopsy). This is the only way to know for certain if you have prostate cancer. What are the benefits of prostate cancer screening? Screening can help to identify cancer at an early stage, before symptoms start and when the cancer can be treated more easily. There is a small chance that screening may lower your risk of dying from prostate cancer. The chance is small because prostate cancer is a slow-growing cancer, and most men with prostate cancer from a different cause. What are the risks of prostate cancer screening? The main risk of prostate cancer screening is diagnosing and treating prostate cancer that would never have caused any symptoms or problems. This is called overdiagnosisand overtreatment. PSA screening cannot tell you if your PSA is high due to cancer or a different cause. A prostate biopsy is the only procedure to diagnose prostate cancer. Even the results of a biopsy may not tell you if your cancer needs to be treated. Slow-growing prostate cancer may not need any treatment other than monitoring, so diagnosing and treating it may cause unnecessary stress or other side effects. Questions to ask your health care provider When should I start prostate cancer screening? What is my risk for prostate cancer? How often do I need screening? What type of screening tests do I need? How do I get my test results? What do my results mean? Do I need treatment? Where to find more information The [employer]: www.cancer.org [employer]: www.auanet.org Contact a health care provider if: You have difficulty urinating. You have pain when you urinate or ejaculate. You have blood in your urine or semen. You have pain in your back or in the area of your prostate. Summary Prostate cancer is a common type of cancer in men. The prostate gland is located below the bladder and in front of the rectum. This gland adds fluid to semen during ejaculation. Prostate cancer screening may identify cancer at an early stage, when the cancer can be treated more easily and is less likely to have spread to other areas of the body. The prostate-specific antigen (PSA) test is the recommended screening test for prostate cancer, but it has associated risks. Discuss the risks and benefits of prostate cancer screening with your health care provider. If you are age 70 or older, the risks that screening can cause are greater than the benefits that it may provide. This information is not intended to replace advice given to you by your health care provider. Make sure you discuss any questions you have with your health care provider. Document Revised: 03/05/2022 Document Reviewed: 03/05/2022 [employer] Patient Education 2022 [employer]. Follow Up Care 10/10/2023 13:43:31 With:Jesse ALONSO, QUIN Cerda, URO Address: [address] [place] [phone] When: Unknown Comments:6 mos w/ PSA [facility] Clinical Note 03-25-2024 Note Date & Type Note Facility 03-25-2024 Note Patient Education Oncology Prostate Cancer Screening Prostate cancer screening is testing that is done to check for the presence of prostate cancer in men. The prostate gland is a walnut-sized gland that is located below the bladder and in front of the rectum in males. The function of the prostate is to add fluid to semen during ejaculation. Prostate cancer is one of the most common types of cancer in men. Who should have prostate cancer screening? Screening recommendations vary based on age and other risk factors, as well as between the professional organizations who make the recommendations. In general, screening is recommended if: ? You are age 50 to 70 and have an average risk for prostate cancer. You should talk with your health care provider about your need for screening and how often screening should be done. Because most prostate cancers are slow growing and will not cause , screening in this age group is generally reserved for men who have a 10- to 15-year life expectancy. ? You are younger than age 50, and you have these risk factors: ? Having a father, brother, or uncle who has been diagnosed with prostate cancer. The risk is higher if your family member's cancer occurred at an early age or if you have multiple family members with prostate cancer at an early age. ? Being a male who is Black or is of [place] or sub-Saharan descent. In general, screening is not recommended if: ? You are younger than age 40. ? You are between the ages of 40 and 49 and you have no risk factors. ? You are 70 years of age or older. At this age, the risks that screening can cause are greater than the benefits that it may provide. If you are at high risk for prostate cancer, your health care provider may recommend that you have screenings more often or that you start screening at a younger age. How is screening for prostate cancer done? The recommended prostate cancer screening test is a blood test called the prostate-specific antigen (PSA) test. PSA is a protein that is made in the prostate. As you age, your prostate naturally produces more PSA. Abnormally high PSA levels may be caused by: ? Prostate cancer. ? An enlarged prostate that is not caused by cancer (benign prostatic hyperplasia, or BPH). This condition is very common in older men. ? A prostate gland infection (prostatitis) or urinary tract infection. ? Certain medicines such as male hormones (like testosterone) or other medicines that raise testosterone levels. A rectal exam may be done as part of prostate cancer screening to help provide information about the size of your prostate gland. When a rectal exam is performed, it should be done after the PSA level is drawn to avoid any effect on the results. Depending on the PSA results, you may need more tests, such as: ? A physical exam to check the size of your prostate gland, if not done as part of screening. ? Blood and imaging tests. ? A procedure to remove tissue samples from your prostate gland for testing (biopsy). This is the only way to know for certain if you have prostate cancer. What are the benefits of prostate cancer screening? ? Screening can help to identify cancer at an early stage, before symptoms start and when the cancer can be treated more easily. ? There is a small chance that screening may lower your risk of dying from prostate cancer. The chance is small because prostate cancer is a slow-growing cancer, and most men with prostate cancer from a different cause. What are the risks of prostate cancer screening? The main risk of prostate cancer screening is diagnosing and treating prostate cancer that would never have caused any symptoms or problems. This is called overdiagnosisand overtreatment. PSA screening cannot tell you if your PSA is high due to cancer or a different cause. A prostate biopsy is the only procedure to diagnose prostate cancer. Even the results of a biopsy may not tell you if your cancer needs to be treated. Slow-growing prostate cancer may not need any treatment other than monitoring, so diagnosing and treating it may cause unnecessary stress or other side effects. Questions to ask your health care provider ? When should I start prostate cancer screening? ? What is my risk for prostate cancer? ? How often do I need screening? ? What type of screening tests do I need? ? How do I get my test results? ? What do my results mean? ? Do I need treatment? Where to find more information ? The [place] Cancer [employer]: www.cancer.org ? [employer] Association: www.auanet.org Contact a health care provider if: ? You have difficulty urinating. ? You have pain when you urinate or ejaculate. ? You have blood in your urine or semen. ? You have pain in your back or in the area of your prostate. Summary ? Prostate cancer is a common type of cancer in men. The prostate gland is located below the bladder and in front of the rectum. (more content not included)... [facility] Discharge instructions 07-31-2023 Note Date & Type Note Facility 07-31-2023 Hospital Discharge instructions Patient Education 07/31/2023 09:24:18 Prostate Cancer Screening Prostate Cancer Screening Prostate cancer screening is testing that is done to check for the presence of prostate cancer in men. The prostate gland is a walnut-sized gland that is located below the bladder and in front of the rectum in males. The function of the prostate is to add fluid to semen during ejaculation. Prostate cancer is one of the most common types of cancer in men. Who should have prostate cancer screening? Screening recommendations vary based on age and other risk factors, as well as between the professional organizations who make the recommendations. In general, screening is recommended if: You are age 50 to 70 and have an average risk for prostate cancer. You should talk with your health care provider about your need for screening and how often screening should be done. Because most prostate cancers are slow growing and will not cause , screening in this age group is generally reserved for men who have a 10- to 15-year life expectancy. You are younger than age 50, and you have these risk factors: ?Having a father, brother, or uncle who has been diagnosed with prostate cancer. The risk is higher if your family member's cancer occurred at an early age or if you have multiple family members with prostate cancer at an early age. ?Being a male who is Black or is of [place] or sub-Saharan descent. In general, screening is not recommended if: You are younger than age 40. You are between the ages of 40 and 49 and you have no risk factors. You are 70 years of age or older. At this age, the risks that screening can cause are greater than the benefits that it may provide. If you are at high risk for prostate cancer, your health care provider may recommend that you have screenings more often or that you start screening at a younger age. How is screening for prostate cancer done? The recommended prostate cancer screening test is a blood test called the prostate-specific antigen (PSA) test. PSA is a protein that is made in the prostate. As you age, your prostate naturally produces more PSA. Abnormally high PSA levels may be caused by: Prostate cancer. An enlarged prostate that is not caused by cancer (benign prostatic hyperplasia, or BPH). This condition is very common in older men. A prostate gland infection (prostatitis) or urinary tract infection. Certain medicines such as male hormones (like testosterone) or other medicines that raise testosterone levels. A rectal exam may be done as part of prostate cancer screening to help provide information about the size of your prostate gland. When a rectal exam is performed, it should be done after the PSA level is drawn to avoid any effect on the results. Depending on the PSA results, you may need more tests, such as: A physical exam to check the size of your prostate gland, if not done as part of screening. Blood and imaging tests. A procedure to remove tissue samples from your prostate gland for testing (biopsy). This is the only way to know for certain if you have prostate cancer. What are the benefits of prostate cancer screening? Screening can help to identify cancer at an early stage, before symptoms start and when the cancer can be treated more easily. There is a small chance that screening may lower your risk of dying from prostate cancer. The chance is small because prostate cancer is a slow-growing cancer, and most men with prostate cancer from a different cause. What are the risks of prostate cancer screening? The main risk of prostate cancer screening is diagnosing and treating prostate cancer that would never have caused any symptoms or problems. This is called overdiagnosisand overtreatment. PSA screening cannot tell you if your PSA is high due to cancer or a different cause. A prostate biopsy is the only procedure to diagnose prostate cancer. Even the results of a biopsy may not tell you if your cancer needs to be treated. Slow-growing prostate cancer may not need any treatment other than monitoring, so diagnosing and treating it may cause unnecessary stress or other side effects. Questions to ask your health care provider When should I start prostate cancer screening? What is my risk for prostate cancer? How often do I need screening? What type of screening tests do I need? How do I get my test results? What do my results mean? Do I need treatment? Where to find more information The [employer]: www.cancer.org [employer] Association: www.auanet.org Contact a health care provider if: You have difficulty urinating. You have pain when you urinate or ejaculate. You have blood in your urine or semen. You have pain in your back or in the area of your prostate. Summary Prostate cancer is a common type of cancer in men. The prostate gland is located below the bladder and in front of the rectum. This gland adds fluid to semen during ejaculation. Prostate cancer screening may identify cancer at an early stage, when the cancer can be treated more easily and is less likely to have spread to other areas of the body. The prostate-specific antigen (PSA) test is the recommended screening test for prostate cancer, but it has associated risks. Discuss the risks and benefits of prostate cancer screening with your health care provider. If you are age 70 or older, the risks that screening can cause are greater than the benefits that it may provide. This information is not intended to replace advice given to you by your health care provider. Make sure you discuss any questions you have with your health care provider. Document Revised: 03/05/2022 Document Reviewed: 03/05/2022 [employer] Patient Education 2022 [employer] Follow Up Care 01/23/2023 10:58:25 With:Jesse ALONSO, QUIN Cerda, URO Address: When: Unknown [facility] Hospital Discharge instructions 01-23-2023 Note Date & Type Note Facility 01-23-2023 Hospital Discharge instructions Patient Education 01/23/2023 10:32:57 Prostate Cancer Screening Prostate Cancer Screening Prostate cancer screening is testing that is done to check for the presence of prostate cancer in men. The prostate gland is a walnut-sized gland that is located below the bladder and in front of the rectum in males. The function of the prostate is to add fluid to semen during ejaculation. Prostate cancer is one of the most common types of cancer in men. Who should have prostate cancer screening? Screening recommendations vary based on age and other risk factors, as well as between the professional organizations who make the recommendations. In general, screening is recommended if: You are age 50 to 70 and have an average risk for prostate cancer. You should talk with your health care provider about your need for screening and how often screening should be done. Because most prostate cancers are slow growing and will not cause , screening in this age group is generally reserved for men who have a 10- to 15-year life expectancy. You are younger than age 50, and you have these risk factors: ?Having a father, brother, or uncle who has been diagnosed with prostate cancer. The risk is higher if your family member's cancer occurred at an early age or if you have multiple family members with prostate cancer at an early age. ?Being a male who is Black or is of [place] or sub-Saharan descent. In general, screening is not recommended if: You are younger than age 40. You are between the ages of 40 and 49 and you have no risk factors. You are 70 years of age or older. At this age, the risks that screening can cause are greater than the benefits that it may provide. If you are at high risk for prostate cancer, your health care provider may recommend that you have screenings more often or that you start screening at a younger age. How is screening for prostate cancer done? The recommended prostate cancer screening test is a blood test called the prostate-specific antigen (PSA) test. PSA is a protein that is made in the prostate. As you age, your prostate naturally produces more PSA. Abnormally high PSA levels may be caused by: Prostate cancer. An enlarged prostate that is not caused by cancer (benign prostatic hyperplasia, or BPH). This condition is very common in older men. A prostate gland infection (prostatitis) or urinary tract infection. Certain medicines such as male hormones (like testosterone) or other medicines that raise testosterone levels. A rectal exam may be done as part of prostate cancer screening to help provide information about the size of your prostate gland. When a rectal exam is performed, it should be done after the PSA level is drawn to avoid any effect on the results. Depending on the PSA results, you may need more tests, such as: A physical exam to check the size of your prostate gland, if not done as part of screening. Blood and imaging tests. A procedure to remove tissue samples from your prostate gland for testing (biopsy). This is the only way to know for certain if you have prostate cancer. What are the benefits of prostate cancer screening? Screening can help to identify cancer at an early stage, before symptoms start and when the cancer can be treated more easily. There is a small chance that screening may lower your risk of dying from prostate cancer. The chance is small because prostate cancer is a slow-growing cancer, and most men with prostate cancer from a different cause. What are the risks of prostate cancer screening? The main risk of prostate cancer screening is diagnosing and treating prostate cancer that would never have caused any symptoms or problems. This is called overdiagnosisand overtreatment. PSA screening cannot tell you if your PSA is high due to cancer or a different cause. A prostate biopsy is the only procedure to diagnose prostate cancer. Even the results of a biopsy may not tell you if your cancer needs to be treated. Slow-growing prostate cancer may not need any treatment other than monitoring, so diagnosing and treating it may cause unnecessary stress or other side effects. Questions to ask your health care provider When should I start prostate cancer screening? What is my risk for prostate cancer? How often do I need screening? What type of screening tests do I need? How do I get my test results? What do my results mean? Do I need treatment? Where to find more information [employer]: www.cancer.org [employer]: www.auanet.org Contact a health care provider if: You have difficulty urinating. You have pain when you urinate or ejaculate. You have blood in your urine or semen. You have pain in your back or in the area of your prostate. Summary Prostate cancer is a common type of cancer in men. The prostate gland is located below the bladder and in front of the rectum. This gland adds fluid to semen during ejaculation. Prostate cancer screening may identify cancer at an early stage, when the cancer can be treated more easily and is less likely to have spread to other areas of the body. The prostate-specific antigen (PSA) test is the recommended screening test for prostate cancer, but it has associated risks. Discuss the risks and benefits of prostate cancer screening with your health care provider. If you are age 70 or older, the risks that screening can cause are greater than the benefits that it may provide. This information is not intended to replace advice given to you by your health care provider. Make sure you discuss any questions you have with your health care provider. Document Revised: 03/05/2022 Document Reviewed: 03/05/2022 [employer] Patient Education 2022 [employer]. Follow Up Care 08/29/2022 13:40:32 With:Jesse ALONSO, QUIN Cerda, URO Address: When: Unknown [facility] Hospital Discharge instructions 08-15-2022 Note Date & Type Note Facility 08-15-2022 Hospital Discharg e instructions Patient Education 08/15/2022 11:37:20 Prostate Cancer Screening Prostate Cancer Screening The prostate is a walnut-sized gland that is located below the bladder and in front of the rectum in males. The function of the prostate (prostate gland) is to add fluid to semen during ejaculation. Prostate cancer is the second most common type of cancer in men. A screening test for cancer is a test that is done before cancer symptoms start. Screening can help to identify cancer at an early stage, when the cancer can be treated more easily. The recommended prostate cancer screening test is a blood test called the prostate-specific antigen (PSA) test. PSA is a protein that is made in the prostate. As you age, your prostate naturally produces more PSA. Abnormally high PSA levels may be caused by: Prostate cancer. An enlarged prostate that is not caused by cancer (benign prostatic hyperplasia, BPH). This condition is very common in older men. A prostate gland infection (prostatitis). Medicines to assist with hair growth, such as finasteride. Depending on the PSA results, you may need more tests, such as: A physical exam to check the size of your prostate gland. Blood and imaging tests. A procedure to remove tissue samples from your prostate gland for testing (biopsy). Who should have screening? Screening recommendations vary based on age. If you are younger than age 40, screening is not recommended. If you are age 40 54 and you have no risk factors, screening is not recommended. If you are younger than age 55, ask your health care provider if you need screening if you have one of these risk factors: ?Being of -[place] descent. ?Having a family history of prostate cancer. If you are age 55 69, talk with your health care provider about your need for screening and how often screening should be done. If you are older than age 70, screening is not recommended. This is because the risks that screening can cause are greater than the benefits that it may provide (risks outweigh the benefits). If you are at high risk for prostate cancer, your health care provider may recommend that you have screenings more often or start screening at a younger age. You may be at high risk if you: Are older than age 55. Are -[place]namese. Have a father, brother, or uncle who has been diagnosed with prostate cancer. The risk may be higher if your family member's cancer occurred at an early age. What are the benefits of screening? There is a small chance that screening may lower your risk of dying from prostate cancer. The chance is small because prostate cancer is typically a slow-growing cancer, and most men with prostate cancer from a different cause. What are the risks of screening? The main risk of prostate cancer screening is diagnosing and treating prostate cancer that would never have caused any symptoms or problems (overdiagnosis and overtreatment). PSA screening cannot tell you if your PSA is high due to cancer or a different cause. A prostate biopsy is the only procedure to diagnose prostate cancer. Even the results of a biopsy may not tell you if your cancer needs to be treated. Slow-growing prostate cancer may not need any treatment other than monitoring, so diagnosing and treating it may cause unnecessary stress or other side effects. A prostate biopsy may also cause: Infection or fever. A false negative. This is a result that shows that you do not have prostate cancer when you actually do have prostate cancer. Questions to ask your health care provider When should I start prostate cancer screening? What is my risk for prostate cancer? How often do I need screening? What type of screening tests do I need? How do I get my test results? What do my results mean? Do I need treatment? Contact a health care provider if: You have difficulty urinating. You have pain when you urinate or ejaculate. You have blood in your urine or semen. You have pain in your back or in the area of your prostate. You have trouble getting or maintaining an erection (erectile dysfunction, ED). Summary Prostate cancer is a common type of cancer in men. The prostate (prostate gland) is located below the bladder and in front of the rectum. This gland adds fluid to semen during ejaculation. Prostate cancer screening may identify cancer at an early stage, when the cancer can be treated more easily. The prostate-specific antigen (PSA) test is the recommended screening test for prostate cancer. Discuss the risks and benefits of prostate cancer screening with your health care provider. If you are age 70 or older, screening is likely to lead to more risks than benefits (risks outweigh the benefits). This information is not intended to replace advice given to you by your health care provider. Make sure you discuss any questions you have with your health care provider. Document Released: 06/20/2018 Document Revised: 08/22/2018 Document Reviewed: 06/20/2018 [employer] Patient Education [employer]. Follow Up Care 07/18/2022 09:56:03 With:Jesse ALONSO, Telma Mitchell, QUIN, URO Address: When:6 months Comments:Depending select mdx results [facility] Evaluation + Plan note Note Date & Type Note Facility Evaluation + Plan note No data available for this section [facility] Evaluation + Plan note Note Date & Type Note Facility Evaluation + Plan note Future Appointments Appointment Date:07/31/2023 08:45:00 AM Scheduled Provider:Telma Molina MD Location:[facility] Appointment Type:URO Office Visit Diagnostic Tests PendingPSA Free & Total 01/23/23 [facility] Evaluation + Plan note Note Date & Type Note Facility Evaluation + Plan note Future Appointments Appointment Date:10/07/2024 08:45:00 AM Scheduled Provider:Telma Molina MD Location:[facility] Appointment Type:URO Office Visit Diagnostic Tests PendingPSA Free & Total 03/25/24 [facility] Evaluation note Note Date & Type Note Facility Evaluation note No assessment information availa [facility] Work Phone: Progress note Note Date & Type Note Facility Progress note No data available for this section [facility] Summary Purpose Family History No Family History Records Found No data available for this section No Family History Records Found No data available for this section No Family History Records Found Advance Directives No Advanced Directives Records FoundNo Advanced Directives Records FoundNo Advanced Directives Records Found Chief Complaint and Reason for Visit Chief Complaint r97.20 Additional Source Comments Patient Care team informatio n (unrecognized section and content) Team Status: Active Member Role Status Dates Edouard Ly MD Primary Care Provider Active Team Status: Inactive Member Role Status Dates Telma Molina MD Attending Provider Active Edouard Ly MD Primary Care Provider Active (unrecognized sect ion and content) No Status Records FoundNo Status Records FoundNo Status Records Found INFORMATION SOURCE (unrecogn ized section and content) DATE CREATED AUTHOR 01/26/2023 [facility] DATE CREATED AUTHOR AUTHOR'S ORGANIZ ATION 10/12/2023 [facility] DATE CREATED AUTHOR AUTHOR'S ORGANIZ ATION 03/26/2024 [facility] Goals (unrecognized section and content) Goals may be documented in a n alternate section FOR RECORDS PERTAINING TO PATIENTS WHO ARE OR HAVE BEEN ENROLLED IN A CHEMICAL DEPENDENCY/SUBSTANCEABUSE PROGRAM, SOME INFORMATION MAY BE OMITTED. This clinical summary was aggregated from multiple sources. Caution should be exercised in using it in the provision of clinical care. This summary normalizes information from multiple sources, and as a consequence, information in this document may materially change the coding, format and clinical context of patient data. In addition, data may be omitted in some cases. CLINICAL DECISIONS SHOULD BE BASED ON THE PRIMARY CLINICAL RECORDS. [facility] [employer] [facility]. provides no warranty or guarantee of the accuracy or completeness of information in this document.
[2024-06-30 11:05] LABS: Basophils Percent Auto 0.7 % (0.2-2.0); Eosinophils Absolute Auto 0.1 10^3/uL (0.0-0.7); Eosinophils Percent Auto 2.5 % (0.9-7.0); Hematocrit 45.8 % (42.0-54.0); Hemoglobin 15.8 g/dL (14.0-18.0); Immature Granulocytes Abs Auto 0.01 10^3/uL (0.00-0.03); Immature Granulocytes Pct Auto 0.2 % (0.0-0.5); Lymphocytes Absolute Auto 1.3 10^3/uL (1.2-3.8); Lymphocytes Percent Auto 23.3 % (20.5-60.0); Mean Corpuscular HGB Conc 34.5 g/dL (29.9-35.2); Mean Corpuscular Hemoglobin 33.7 pg (25.9-34.0); Mean Corpuscular Volume 97.7 fL (80.0-94.0); Mean Platelet Volume 9.4 fL (9.5-13.5); Monocytes Absolute Auto 0.7 10^3/uL (0.3-0.8); Monocytes Percent Auto 12.6 % (1.7-12.0); Neutrophils Absolute Auto 3.5 10^3/uL (1.4-6.5); Neutrophils Percent Auto 60.7 % (43.0-75.0); Platelet Count 216 10^3/uL (150-450); Red Blood Count 4.69 10^6/uL (4.70-6.10); Red Cell Distribution Width 12.2 % (11.0-15.0); White Blood Count 5.7 10^3/uL (4.0-11.0)
[2024-06-30 12:26] LABS: Estimated Average Glucose 94 mg/dL; Glycohemoglobin A1C 4.9 % (4.5-6.2)
[2024-06-30 12:55] LABS: Alanine Aminotransferase 21 U/L (16-63); Albumin Globulin Ratio 1.1; Albumin Level 3.8 g/dL (3.4-5.0); Alkaline Phosphatase 58 U/L (46-116); Anion Gap 11.6; Aspartate Amino Transferase 21 U/L (15-37); BUN Creatinine Ratio 15.8; Calcium 10.6 mg/dL (8.5-10.1); Carbon Dioxide 26.8 mmol/L (21.0-32.0); Chloride 101 mmol/L (98-107); Chol HDL Ratio 4.9; Cholesterol 219 mg/dL (<=200); Estimated GFR (African America >60 (>=60 mL/min/1.73m^2); Estimated GFR (Non-African Ame 54 (>=60 mL/min/1.73m^2); Free T3 2.95 pg/mL (2.18-3.98); Globulin 3.5 g/dL; Glucose 93 mg/dL (74-106); HDL Cholesterol 45 mg/dL (40-60); Potassium 4.4 mmol/L (3.5-5.1); Sodium 135 mmol/L (136-145); Thyroid Stimulating Hormone 2.329 uIU/mL (0.358-3.740); Total Protein 7.3 g/dL (6.4-8.2); Triglycerides 145 mg/dL (<=150)
[2024-07-01 04:08] LABS: PSA, Free 0.67 ng/mL; Prostate Specific Ag 5.7 ng/mL (0.0-4.0)
== END 2024-06-30 10:42 | disposition home or self-care (01) ==
LOC: LAB 10:44
PROVIDERS: PCP Family Medicine; Visit Provider Family Medicine
DX: D64.9 Anemia, unspecified (principal); I10 Essential (primary) hypertension; E78.00 Pure hypercholesterolemia, unspecified; R97.20 Elevated prostate specific antigen [PSA]; M25.50 Pain in unspecified joint; Z12.5 Encounter for screening for malignant neoplasm of prostate; R73.09 Other abnormal glucose; E03.9 Hypothyroidism, unspecified
CPT/HCPCS: 36415; 80053; 80061; 83036; 83540; 84153; 84154; 84436; 84443; 84481; 85025

== ENCOUNTER 2025-07-21 09:22 | Outpatient (OUT) | payer MEDICARE, OTHER, SELFPAY ==
--- OUTSIDE RECORDS SUMMARY | 2025-07-21 09:43 | XMS_ITS | CCD ---
Author Organization [facility] Care Team Providers Care Bolt Sawyer Name Role Phone Edouard Ly Primary Care Physician LUE . TELMA Ching Admitting Unavailable LUE ., TELMA M Attending Unavailable HOY ., DR NUNN Primary Care Unavailable LUE ., TELMA Flower Consulting Unavailable HOY ., DR NUNN Admitting Unavailable HOY ., DR NUNN Attending Unavailable HOY ., DR NUNN Consulting Unavailable HOY ., DR NUNN Admitting Unavailable HOY ., DR NUNN Attending Unavailable HOY ., DR NUNN Consulting Unavailable MD Tlema Molina Attending Provider [phone] MD Edouard Ly Primary Care Provider [phone] Edouard Ly Primary Care Unavailable Lue, Telma M Attending Unavailable Lue, Telma M Admitting Unavailable Lue, Telma M. Attending Unavailable Lue, Telma M. Attending Unavailable Lue, Telma MToño Attending Unavailable Lue, Telma M. Admitting Unavailable Lue, Telma M. Attending Unavailable Lue, Telma M. Attending Unavailable Madiha Craft Attending Unavailable Lue, Telma M. Attending Unavailable Lue, Telma M. Admitting Unavailable Lue, Telma M. Attending Unavailable Lue, Telma M. Admitting Unavailable Lue, Telma M. Attending Unavailable Lue, Telma M. Attending Unavailable Lue, Telma M. Admitting Unavailable Lue, Telma M. Attending Unavailable Allergies Allergy ClassificationReported Allergen(s)Allergy TypeDate of OnsetReaction(s) Facility (3 sources)No Known Medication Allergies; Translations: [No Known Medication Allergies]Propensity to adverse reactions (disorder)[facility] Repository Medications Current Medications MedicationDrug Class(es)DatesSig (Normalized)Sig (Original)cefuroxime 250 mg oral tablet (8 sources)Cephalosporin AntibacterialStart: 32-96-6969fqkhtocdfp 250 mg Tab Refills(s) 0 Start Date: 08/15/22 Status: Ordered Repeat number: 1 hydroCHLOROthiazide 25 mg oral tablet (8 sources)Thiazide DiureticStart: 20-66-1773qblcmtzwjprpbshtkut 25 mg Tab Refills(s) 0 Start Date: 08/15/22 Status: Ordered Repeat number: 1meloxicam 15 mg oral tablet (8 sources)Nonsteroidal Anti-inflammatory DrugStart: 00-24-5556ibzayzzbr 15 mg Tab Refills(s) 0 Start Date: 08/15/22 Status: Ordered Repeat number: 1metoprolol tartrate 100 mg oral tablet (8 sources)beta-Adrenergic BlockerStart: 93-78-2846wxxm 1 mg by mouth twice dailymetoprolol tartrate 100 mg Tab mg tab(s), Oral, BID, Refills(s) 0 Start Date: 08/15/22 Status: Ordered Repeat number: 1olmesartan medoxomil 40 mg oral tablet (8 sources)Angiotensin 2 Receptor BlockerStart: 49-19-4015klhjrcrwmr 40 mg Tab Refills(s) 0 Start Date: 08/15/22 Status: Ordered Repeat number: 1potassium chloride 10 meq oral tablet (8 sources)Start: 61-68-6969Xrzgyhfnp Chloride (Eqv-K-Tab) 10 mEq oral tablet, extended release Refills(s) 0 Start Date: 08/15/22 Status: Ordered Repeat number: 1 Problems Active Problems Problem ClassificationProblemDateDocumented DateEpisodic/ChronicDisorders of lipid metabolism (10 sources)Pure hypercholesterolemia; Translations: [Pure hypercholesterolemia, unspecified]Onset: [id number] hypertension (9 sources)Essential hypertension; Translations: [Essential (primary) hypertension]Onset: 236324-92-6072QayepllGgnboodbyfsmwr (8 sources)OsteoarthritisOnset: 988120-40-7765EgibhbrRzrfh screening for suspected conditions (not mental disorders or infectious disease) (20 sources)Raised prostate specific antigen; Translations: [Elevated prostate specific antigen [PSA]]Onset: 37-13-8348Pqlmpmcx Past or Other Problems Problem ClassificationProblemDateDocumented DateEpisodic/ChronicDiabetes mellitus without complication (1 source)Other abnormal glucose; Translations: [OTHER ABNORMAL GLUCOSE]Onset: 19-42-7524CpskouttCplfs nutritional; endocrine; and metabolic disorders (1 source)Overweight; Translations: [OVERWEIGHT]Onset: 74-37-0772Hfnrrrxr Residual codes; unclassified (1 source)Edema, unspecified; Translations: [EDEMA UNSPECIFIED]Onset: 07-11-2022 Episodic Results Test NameValueInterpretationReference RangeFacilityUrology Office/Clinic Noteon [id number] Office/Clinic NoteUrology Office/Clinic Note Chief Complaint f/u HPI Staff Previous Dx: elevated PSA *no urology meds PSA drawn IO 06/02/25 : 4.6 & 15.2 % Patient denies any dysuria or gross hematuria. Denies any flank or abdomen pain. no symptoms History of Present Illness Tests reviewed: UA, PSA I have reviewed the previous health record [...] HPI. Physical Exam Vitals & Measurements HR: 71(Peripheral) BP: 134/84 HT: 184 cm HT: 72 in WT: 236.556 lb WT: 107.3 kg BMI: 31.69 General Appearance: alert, no distress, well nourished, well developed adult. Assessment/Plan 70-year-old male here for follow-up of elevated PSA. TEJAL 4. 1. Elevated PSA (R97.20: Elevated prostate specific antigen [PSA]) PSA: 07/09/22 - 4.3 07/11/22 - 3.3 & 11.8% 01/21/23 - 3.7 & 8.1% 07/26/23 - 4.8 & 10% 03/10/24 - 3.8 & 12.6%, PSAD 0.07 09/28/24 - 5.2 & 15.4%, PSAD 0.09 06/02/25 - 4.6 & 15.2%, PSAD Denies family hx of prostate cancer. Mother in her 90s, states his father in his sleep. [facility] 08/15/22 - very low risk. [place] [facility] [place] Prostate volume 57 mL. The PCPT risk calculator: 10% high grade, 24% low grade, 34% total risk. UA neg. IPSS 5 (3). No urinary complaints. PSA decreased. Will cont to monitor q6m given hx of fluctuations. Follow up 6 mos with PSA F&T or sooner if needed. Pt understands and agrees with plan. -If PSA elevates, consider repeat MRI Follow-up With When Contact Information Jesse ALONSO, Telma Mitchell, URL, URO Additional Instructions: 6 mos with PSA F&T with LT Patient Education Prostate Cancer Screening I, Xiomy Chery, personally scribed for Dr. Molina on 06/09/2025 11:05:20. . Documentation recorded by the scribe, Xiomy Chery, accurately reflects the services(s) I performed and decisions made by me. Authenticated by Dr. Molina on 06/09/2025 11:07:22. Problem List/Past Medical History Ongoing Elevated PSA [...] Allergies No Known Medication Allergies Social History Alcohol Current. Beer. 1-2 times per week., 12/09/2024 Substance Abuse Never., 12/09/2024 Tobacco Former smoker, quit more than 30 days ago Tobacco Use:. Never Smokeless Tobacco Use:. Cigarettes, Yes, 12/09/2024 Family History Family history is negative Immunizations Vaccine Date Status Comments SARS-CoV-2 (COVID-19) mRNA-1273 vaccine 06/07/2021 Recorded 2022-08-15: TPV60 SARS-CoV-2 (COVID-19) mRNA-1273 vaccine 05/10/2021 Recorded 2022-08-15: TPV60 Lab Results Ambulatory Point of Care Results Bilirubin Urine Dipstick: 1+ Small (06/09/25 09:46:00) Blood Urine Dipstick: Negative (06/09/25 09:46:00) Glucose Urine Dipstick: Negative (06/09/25 09:46:00) Ketones Urine Dipstick: Trace - 5 mg/dl (06/09/25 09:46:00) Leukocytes Urine Dipstick: Negative (06/09/25 09:46:00) Nitrite Urine Dipstick: Negative (06/09/25 09:46:00) Protein Urine Dipstick: Negative (06/09/25 09:46:00) Specific [place] Urine Dipstick: 1.025 (06/09/25 09:46:00) Urine Appearance Urine Dipstick: Clear (06/09/25 09:46:00) Urine Color Urine Dipstick: Yellow (06/09/25 09:46:00) Urobilinogen Urine Dipstick: Normal 0.2-1 EU/dl (06/09/25 09:46:00) pH Urine Dipstick: 5.5 (06/09/25 09:46:00)NormalSelect [facility]ty [facility] Comment on above:Result Comment: Electronically Signed By: Telma Molina MD.br\Date and Time Signed: 06/09/25 11:07EDT\.br\Electronically Co-Signed By: Xiomy Chery.br\Date and Time Co-Signed: 06/09/25 11:05 EDTUrology Office/Clinic Noteon [id number] Office/Clinic NoteUrology Office/Clinic Note Chief Complaint 6 mth f/u elevated PSA HPI Staff 69yr old male pt here for 6mo f/u with PSA. Previous Dx: elevated PSA *no urology meds PSA: 09/28/24 - 5.2 & 15.4% pt denies any urinary issues. History of Present Illness Tests reviewed: UA, PSA I have reviewed the previous health record [...] See HPI. Physical Exam Vitals & Measurements T: 37 ???C(Oral) HR: 68(Peripheral) RR: 16 BP: 122/88 HT: 184 cm HT: 72 in WT: 233.69 lb WT: 106 kg BMI: 31.31 General Appearance: alert, no distress, well nourished, well developed male. Assessment/Plan 69-year-old male here for follow-up of elevated PSA 1. Elevated PSA (R97.20: Elevated prostate specific antigen [PSA]) PSA: 07/09/22 - 4.3 07/11/22 - 3.3 & 11.8% 01/21/23 - 3.7 & 8.1% 07/26/23 - 4.8 & 10% 03/10/24 - 3.8 & 12.6%, PSAD 0.07 09/28/24 - 5.2 & 15.4%, PSAD 0.09 Denies family hx of prostate cancer. Mother in her 90s, states his father in his sleep. [facility] 08/15/22 - very low risk. [place] [facility] [place] volume 57 mL. Neg for evidence of malignancy. The PCPT risk calculator: 10% high grade, 24% low grade, 34% total risk. UA neg. IPSS 3 (5). No prostate meds. PSA increased however when looking at general trend, it has only increased by 1 point in 3 yrs. Reviewed PCPT results with pt. He elects to cont to monitor PSA. Counseled worsening urinary sx can also cause PSA elevation/fluctuation. Pt opts to continue surveillance rather than biopsy at this time. -Follow up 6 mos with PSA F&T (nurse visit) or sooner if needed. Pt understands and agrees withplan. Follow-up With When Contact Information Jesse ALONSO, Telma Mitchell, URL, URO Additional Instructions: 6 mos with PSA F&T (nurse visit) Patient Education Prostate Cancer Screening I, Xiomy Chery, personally scribed for Dr. Molina on 12/09/2024 11:03:14. . Documentation recorded by the scribe, Xiomy Chery, accurately reflects the services(s) I performed and decisions made by me. Authenticated by Dr. Molina on 12/09/2024 12:29:43. Problem List/Past Medical History Ongoing Elevated PSA [...] Allergies No Known Medication Allergies Social History Alcohol Current. Beer. 1-2 times per week., 12/09/2024 Substance Abuse Never., 12/09/2024 Tobacco Former smoker, quit more than 30 days ago Tobacco Use:. Never Smokeless Tobacco Use:. Cigarettes, Yes, 12/09/2024 Family History Family history is negative Immunizations Vaccine Date Status Comments SARS-CoV-2 (COVID-19) mRNA-1273 vaccine 06/07/2021 Recorded 2022-08-15: TPV60 SARS-CoV-2 (COVID-19) mRNA-1273 vaccine 05/10/2021 Recorded 2022-08-15: TPV60 Lab Results Ambulatory Point of Care Results Bilirubin Urine Dipstick: Negative (12/09/24 10:05:00) Blood Urine Dipstick: Negative (12/09/24 10:05:00) Glucose Urine Dipstick: Negative (12/09/24 10:05:00) Ketones Urine Dipstick: Negative (12/09/24 10:05:00) Leukocytes Urine Dipstick: Negative (12/09/24 10:05:00) Nitrite Urine Dipstick: Negative (12/09/24 10:05:00) Protein Urine Dipstick: Negative (12/09/24 10:05:00) Specific [place] Urine Dipstick: 1.015 (12/09/24 10:05:00) Urine Appearance Urine Dipstick: Clear (12/09/24 10:05:00) Urine Color Urine Dipstick: Yellow (12/09/24 10:05:00) Urobilinogen Urine Dipstick: Normal 0.2-1 EU/dl (12/09/24 10:05:00) pH Urine Dipstick: 6 (12/09/24 10:05:00)[facility] CenterComment on above:Result Comment: Electronically Signed By: Telma Molina MD\.br\Date and Time Signed: 12/09/24 12:29EDT\.br\Electronically Co-Signed By: Xiomy Chery\.br\Date and Time Co-Signed: 12/09/24 11:03 EDT\.br\Electronically Co- Signed By: Xiomy Chery\.br\Date and Time Co-Signed: 12/09/24 11:04 EDT Provider Letteron [phone] LetterProvider Letter October 14, 2024 MARK CHAVEZ [address] [place] [id number] : 1955 Dear Mark , We have been trying to reach you with no success. Please give us a call to find a date that will work for you. I hope your if doing well. Also, at the time of your call, please provide us with your current information. Thank you for your prompt attention to this matter. Sincerely, [facility] [address] [place] [address] SbyjlmIreazgUniversity Hospitals Beachwood Medical CenterCHEMISTRYOrdered By: SYSTEM SYSTEM on 73-50-3867Wllz PSA [Mass/Vol]0.8 ng/mLInvalid Interpretation Code Remisol ChemComment on above:Interpretive Data: The concentration of free PSA and total PSA determined with assays from different manufacturers can vary due to differences in assay methods and specificity. Values obtained with different soft sugar supervisor's assays cannot be used interchangeably. The methodology used to obtain this result was chemiluminescence using Ike Talk[employer]'s Access Hybritech PSA reagent and Access Hybritech free PSA reagent.Free PSA/Total PSA [Mass fraction]15.4 %Low>=25.0%Remisol ChemProstate specific Ag [Mass/Vol]5.2 ng/mLHigh0.1 - 3.5 ng/mLRemisol ChemComment on above:Interpretive Data: The concentration of PSA determined by different manufacturers can vary due to di fferences in assay methods and reagent specificity. Values obtained from different assay methods cannot be used interchangeably. The methodology used for this result was chemiluminescence using Schvey's Access Hybritech PSA reagent.Ambulatory Visit Summaryon [id number] Visit SummaryAmbulatory Visit Summary MARK CHAVEZ :1955 Visit Date:03/25/2024 [...] ALONSO, Telma Mitchell [facility] CenterUrology Office/Clinic Noteon [id number] Office/Clinic NoteUrology Office/Clinic Note Chief Complaint 6 month follow [...] - very low risk. [place]07[place]23 [facility] [place] volume 57 mL. Neg for evidence of malignancy. Denies family hx of prostate cancer. Mother in her 90s, states his father in his sleep. IPSS 5 (5). UA today negative for blood and infection. Not taking any prostate medications. No urinary concerns. PSA has decreased from prior and percent free has increased, overall favorable. Will hold off on bxat this time. Will continue to monitor level closely for now. -PSA FT in 6 mos, avoid strenuous activity 4 days prior Follow-up With When Contact Information Jesse ALONSO, Telma Mitchell, URL, URO [address] [place] [phone] Additional Instructions: 6 mos w/ PSA Patient Education Prostate Cancer Screening I, Radha Ortega, personally scribed for Dr. Molina on 03/25/2024 10:07:52. . Documentation recorded by the scribeRadha, accurately reflects the services(s) I performed and [...] Protein Urine Dipstick: Negative (03/25/24 09:11:00) Specific [place] Urine Dipstick: <=1.005 (03/25/24 09:11:00) Urine Appearance Urine Dipstick: Clear (03/25/24 09:11:00) Urine Color Urine Dipstick: Yellow (03/25/24 09:11:00) Urobilinogen Urine Dipstick: Normal 0.2-1 EU/dl (03/25/24 09:11:00) pH Urine Dipstick: 5.5 (03/25/24 09:11:00)[facility] Comment on above:Result Comment: Electronically Signed By: Telma Molina MD\.br\Date and Time Signed: 03/25/24 23:05EDT\.br\Electronically Co-Signed By: Radha Ortega\.br\Date and Time Co-Signed: 03/25/24 10:08 EDTLab Reportson [id number] [id number]#1.00TIFFNoOhio State Health SystemMR prostate wo/w conon 91-38-6417XG prostate wo/w con [facility] [place] [address] MRI Report Signed Patient: Mark Chavez MR#: [id number] 36 : 1955 Acct:[id number] Age/Sex: 68 / M ADM Date: 10/07/23 Loc: MR Room: Type: [facility] Attending Dr: Telma Molina MD Copies [...] Phillips Jr., D.O.10/08/2023 9:35 AM Dictation Location: [place] [address] Transcribed By: [facility] 10/08/23 0935 Dictated By: Onesimo Phillips Jr DO 10/08/23 0917 Signed By: 10/08/23 0935[facility] CenterISTAT XRay CREon 10-07-2023 Creatinine [Mass/Vol]1.4 mg/dLHigh0.6-1.3FKettering Health [facility] Center Comment on above:Result Comment: ER/ESD physician is notified/shown all ISTAT results. Critical values may be confirmed by laboratory testing if deemed necessary by ER attending doctor.Performed By: #### ISCRE #### [facility] [address] [place] [address] USAISTAT GFR55.432[facility] Comment on above:Result Comment: PERFORMED BY: [facility] [address] [place] [address] PATHOLOGIST CLINICAL APPEALS AUDITOR JIGNESH SEARS M.D.Performed By: #### ISCRE #### [facility] [address] [place] [id number] USAPSA, FREE AND TOTAL RATIOon 01-22-2023% Free PSA8.1 % NormalThe [facility] Medical CenterComcorewell health greenville hospital on above:Result Comment: The table below lists the probability [...] free PSA for any other population of men.Performed By: #### PSAFREE #### [facility] [address] [place] [address] Dr. Cheryl Geller specific Ag [Mass/Vol]3.7 ng/mLNormal0.0-4.0The [facility] CenterComment on above:Result Comment: [employer]Life ECLIA methodology. . According to the [place] [employer], Serum PSA should decrease and [...] of the presence or absence of malignant disease.Performed By: #### PSAFREE #### [facility] [address] [place] [address] Dr. Cheryl Munoz, Free0.30 ng/mLNormalN/AThe [facility] CenterComcorewell health greenville hospital on above:Result Comment: Anna ECLIA methodology.Performed By: #### PSAFREE #### [facility] [address] [place] [address] Dr. Cheryl Munoz, FREE AND TOTAL RATIOon 07-11-2022% Free PSA11.8 %NormalThe [facility] on above:Result Comment: The table below lists the probability [...] free PSA for any other population of men.Performed By: #### PSAFREE #### [facility] [address] [place] [address] Dr. Cheryl PickeringProstate specific Ag [Mass/Vol]3.3 ng/mLNormal0.0-4.0The [facility] CenterComment on above:Result Comment: [employer] ECLIA methodology. . According to the [place] [employer], Serum PSA should decrease and [...] of the presence or absence of malignant disease.Performed By: #### PSAFREE #### [facility] [address] [place] [address] Dr. Cheryl Munoz, Free0.39 ng/mLNormalN/AThe [facility] CenterComcorewell health [facility] hospital on above:Result Comment: Anna ECLIA methodology.Performed By: #### PSAFREE #### [facility] [address] [place] [address] Dr. Cheryl PickeringINSULINon 10-47-0009Oatgmef8.9 uIU/mLNormal2.6-24.9The [facility] on above:Performed By: #### INSULIN #### [facility] [address] [address] [address] Cheryl Barragan BLD IMMUNO SCREENon 31-39-6797HTDRYD BLOODNegativeNormal NEGATIVEThe [facility] CenterComment on above:Performed By: #### LIPID, TSH, T7, CMP, URIC #### [facility] [address] [place] [address] Dr. Cheryl PickeringCBC AUTO DIFFon [id number] #0.1 103/ulNormal0.0-0.1The [facility] CenterComment on above:Performed By: #### CBC #### [facility] [address] [place] [address] Dr. Cheryl PickeringBasophils/100 WBC (Bld)1.1 %Normal0.2-2.0[facility] Comment on above:Performed By: #### CBC #### [facility] [address] [place] [address] Dr. Cheryl Sena #0.2 103/ulNormal0.0-0.7The [facility] CenterComment on above: Performed By: #### CBC #### [facility] [address] [place] [address] Dr. Cheryl Milnerosinophils/100 WBC (Bld)3.3 %Normal0.9-7.0The [facility] Comment on above:Performed By: #### CBC #### [facility] [address] [place] [address] Dr. Cheryl Milnerrythrocyte distribution width (RBC) [Ratio]12.0 %Qzqpgn15.0-15.0 The [facility] CenterComment on above:Performed By: #### CBC #### [facility] [address] [place] [address] Dr. Cheryl PickeringHematocrit (Bld) [Volume fraction]42.0 %Wyayrn32.0-54.0The [facility] CenterComment on above:Performed By: #### CBC #### [facility] [address] [place] [address] Dr. Cheryl PickeringHemoglobin (Bld) [Mass/Vol]14.7 g/fYWlzmqd13.0-18.0The [facility] CenterComment on above:Performed By: #### CBC #### [facility] [address] [place] [address] Dr. Cheryl Donaldson #0.03 10e3/ulNormal0.00-0.03The [facility] CenterComment on above:Performed By: #### CBC #### [facility] [address] [place] [address] Dr. Cheryl Donaldson %0.5 %Normal0.0-0.5The [facility] CenterComment on above: Performed By: #### CBC #### [facility] [address] [place] [address] Dr. Cheryl Yoon #1.4 103/ulNormal1.2-3.8The [facility] CenterComment on above:Performed By: #### CBC #### [facility] [address] [place] [address] Dr. Cheryl Castanonhocytes/100 WBC (Bld)23.6 %Veanjn96.5-60.0The [facility] CenterComment on above:Performed By: #### CBC #### [facility] [address] [place] [address] Dr. Cheryl RubioUAL DIFF REQNONormalThe [facility] CenterComment on above: Performed By: #### CBC #### [facility] [address] [place] [address] Dr. Cheryl Rosas (RBC) [Entitic mass]33.3 ooSywexc11.9-34.0The [facility] CenterComment on above:Performed By: #### CBC #### [facility] [address] [place] [address] Dr. Cheryl Rosas (RBC) [Mass/Vol]35.0 g/qWKwayyr74.9-35.2The [facility] CenterComment on above:Performed By: #### CBC #### [facility] [address] [place] [address] Dr. Cheryl Rosas (RBC) [Entitic vol]95.2 fLCritically high80.0-94.0The [facility] CenterComment on above:Performed By: #### CBC #### [facility] [address] [place] [address] Dr. Cheryl Sosa #0.7 103/ulNormal0.3-0.8The [facility] CenterComment on above:Performed By: #### CBC #### [facility] [address] [place] [address] Dr. Cheryl Sierraocytes/100 WBC (Bld)12.1 %Critically high1.7-12.0The [facility] CenterComment on above:Performed By: #### CBC #### [facility] [address] [place] [address] Dr. Cheryl Garnica #3.4 103/ulNormal1.4-6.5The [facility] CenterComment on above:Performed By: #### CBC #### [facility] [address] [place] [address] Dr. Cheryl Serratoutrophils/100 WBC (Bld)59.4 %Qcilpo97.0-75.0The [facility] CenterComment on above:Performed By: #### CBC #### [facility] [address] [place] [address] Dr. Cheryl Nation mean volume (Bld) [Entitic vol]9.3 fLCritically low 9.5-13.5The [facility] CenterComment on above:Performed By: #### CBC #### [facility] [address] [place] [address] Dr. Cheryl RileyT236 103/juIakqtv154-749Hub [facility] CenterComment on above: Performed By: #### CBC #### [facility] [address] [place] [address] Dr. Cheryl JcC4.41 106/ulCritically low4.70-6.10The [facility] CenterComment on above:Performed By: #### CBC #### [facility] [address] [place] [address] Dr. Cheryl PickeringWBC5.7 103/ulNormal4.0-11.0The [facility] CenterComment on above: Performed By: #### CBC #### [facility] [address] [place] [address] Dr. Cheryl Bee THYROXINE INDEX T7on [id number]e [facility] CenterComcore[facility] on above:Performed By: #### LIPID, TSH, T7, CMP, URIC #### [facility] [address] [address] [address] Cheryl PickeringT3U35.0 %Thefbr12.0-40.0The [facility] CenterComment on above: Performed By: #### LIPID, TSH, T7, CMP, URIC #### [facility] [address] [place] [address] Dr. Cheryl PickeringT4 [Mass/Vol]7.40 ug/dLNormal4.50-12.10The [facility] Comment on above:Performed By: #### LIPID, TSH, T7, CMP, URIC #### [facility] [address] [place] [address] Dr. Cheryl PickeringGLYCOHEMOGLOBIN A1Con 58-78-6598PAQ RECOMMENDATIONSEE BELOWNormal The [facility] CenterComcorewell [facility] on above:Result Comment: ADA RECOMMENDED LIMIT 4.0 - 6.0 ADA THERAPEUTIC TARGET < 7.0 ACTION SUGGESTED > 7.0Performed By: #### LIPID, TSH, T7, CMP, URIC #### [facility] [address] [place] [address] Dr. Cheryl PickeringGlucose [Mass/Vol]111 mg/dLNormalThe [facility] CenterComment on above:Performed By: #### LIPID, TSH, T7, CMP, URIC #### [facility] [address] [place] [address] Dr. Cheryl PickeringHbA1c (Bld) [Mass fraction]5.5 %Normal4.5-6.2The [facility] CenterComment on above:Performed By: #### LIPID, TSH, T7, CMP, URIC #### [facility] [address] [place] [address] Dr. Cheryl Lepe PROFILEon 82-67-9585QLMN-HDL RATIO NORMSFirelands Regional Medical Center on above:Result Comment: 3.3 - 4.4 LOW RISK 4.4 - 7.1 AVERAGE RISK 7.1 - 11.0 MODERATE RISK >11.0 HIGH RISKPerformed By: #### LIPID, TSH, T7, CMP, URIC #### [facility] [address] [address] [address] Cheryl PickeringCholesterol [Mass/Vol]220 mg/dLCritically high<=200The [facility] on above:Performed By: #### LIPID, TSH, T7, CMP, URIC #### [facility] [address] [place] [address] Dr. Cheryl PickeringCholesterol in HDL [Mass/Vol]44 mg/rIKlkxcl96-62JkyOhioHealth O'Bleness Hospital on above:Performed By: #### LIPID, TSH, T7, CMP, URIC #### [facility] [address] [address] [address] Cheryl Fordeesterol in LDL [Mass/Vol]146.6 mg/dLMount Carmel Health System on above:Performed By: #### LIPID, TSH, T7, CMP, URIC #### [facility] [address] [place] [address] Dr. Cheryl Serna.total/Cholesterol in HDL [Mass ratio]5.0 {ratio} NormalOhioHealth O'Bleness Hospital on above:Performed By: #### LIPID, TSH, T7, CMP, URIC #### [facility] [address] [place] [address] Dr. Cheryl Jimenez NORMAL> or = 60 mg/dl - LOW CARDIOVASCULAR RISK <40 mg/dl - HIGH CARDIOVASCULAR RISKMount Carmel Health System on above:Performed By: #### LIPID, TSH, T7, CMP, URIC #### [facility] [address] [place] [address] Dr. Cheryl PickeringLDL CALC NORMALSEE [facility] CampusComcorewell health [facility] on above:Result Comment: <100 mg/dl OPTIMAL 100 - 129 mg/dl NEAR OR ABOVE OPTIMAL 130 - 159 mg/dl BORDERLINE HIGH 160 - 189 mg/dl HIGH >190 mg/dl VERY HIGH Performed By: #### LIPID, TSH, T7, CMP, URIC #### [facility] [address] [address] [address] Cheryl PickeringTriglyceride [Mass/Vol]147 mg/dLNormal<=150The [facility] Comment on above:Performed By: #### LIPID, TSH, T7, CMP, URIC #### [facility] [address] [address] [address] Cheryl PickeringVLDL CALC29.4 mg/dLNormalThe [facility] CenterComment on above: Performed By: #### LIPID, TSH, T7, CMP, URIC #### [facility] [address] [place] [address] Dr. Cheryl Hart 14(COMP METB)on 89-55-6652Dgxjloc [Mass/Vol]3.9 g/dLNormal 3.4-5.0The [facility] CenterComment on above:Performed By: #### LIPID, TSH, T7, CMP, URIC #### [facility] [address] [address] [address] Cheryl PickeringAlbumin/Globulin [Mass ratio]1.1 {ratio}NormalThe [facility] CenterComment on above:Performed By: #### LIPID, TSH, T7, CMP, URIC #### [facility] [address] [address] [address] Cheryl Vizcarra [Catalytic activity/Vol]57 U/VZdpjjo90-910Mqt [facility] CenterComment on above:Performed By: #### LIPID, TSH, T7, CMP, URIC #### [facility] [address] [address] [address] Cheryl Ochoa [Catalytic activity/Vol]21 U/WZkyohy74-86Icj [facility] Hospitalment on above:Performed By: #### LIPID, TSH, T7, CMP, URIC #### [facility] [address] [address] [address] Cheryl Smart gap [Moles/Vol]10.4 mmol/LNormalMercer County Community Hospital Comment on above:Performed By: #### LIPID, TSH, T7, CMP, URIC #### [facility] [address] [address] [address] Cheryl PickeringAST [Catalytic activity/Vol]21 U/RNlhuza78-83Wks [facility] CenterComment on above:Performed By: #### LIPID, TSH, T7, CMP, URIC #### [facility] [address] [address] [address] Cheryl PickeringBilirubin [Mass/Vol]0.8 mg/dLNormal0.2-1.0The [facility] Comment on above:Performed By: #### LIPID, TSH, T7, CMP, URIC #### [facility] [address] [place] [address] Dr. Cheryl PickeringCalcium [Mass/Vol]10.1 mg/dLNormal8.5-10.1[facility] Comment on above:Performed By: #### LIPID, TSH, T7, CMP, URIC #### [facility] [address] [place] [address] Dr. Cheryl PickeringChloride [Moles/Vol]103 mmol/MBziabj61-532BbyMercer County Community Hospital Comment on above:Performed By: #### LIPID, TSH, T7, CMP, URIC #### [facility] [address] [place] [address] Dr. Cheryl PickeringCO2 [Moles/Vol]28.3 mmol/CSkuueu87.0-32.0The [facility] Comment on above:Performed By: #### LIPID, TSH, T7, CMP, URIC #### [facility] [address] [place] [address] Dr. Cheryl PickeringCreatinine [Mass/Vol]1.26 mg/dLNormal0.70-1.30The [facility] CenterComment on above:Performed By: #### LIPID, TSH, T7, CMP, URIC #### [facility] [address] [place] [address] Dr. Luna ChangEGFR-AF SWEDISH>60Normal>=60The [facility] HospitalComment on above:Performed By: #### LIPID, TSH, T7, CMP, URIC #### [facility] [address] [address] [address] Cheryl Dewey-NON AF UNPTEIRV53 mL/min/1.91c7Wocurdyptt low>=60The [facility] CenterComment on above:Performed By: #### LIPID, TSH, T7, CMP, URIC #### [facility] [address] [place] [address] Dr. Cheryl PickeringGlobulin (S) [Mass/Vol]3.5 g/dLNormalThe [facility] CenterComment on above:Performed By: #### LIPID, TSH, T7, CMP, URIC #### [facility] [address] [place] [address] Dr. Cheryl PickeringGlucose [Mass/Vol]103 mg/bLLsofag86-957JjmMercer County Community Hospital Comment on above:Performed By: #### LIPID, TSH, T7, CMP, URIC #### [facility] [address] [place] [address] Dr. Cheryl PickeringPotassium [Moles/Vol]4.7 mmol/LNormal3.5-5.1The [facility] Comment on above:Performed By: #### LIPID, TSH, T7, CMP, URIC #### [facility] [address] [place] [address] Dr. Cheryl PickeringProtein [Mass/Vol]7.4 g/dLNormal6.4-8.2The [facility] Comment on above:Performed By: #### LIPID, TSH, T7, CMP, URIC #### [facility] [address] [place] [address] Dr. Cheryl PickeringSodium [Moles/Vol]137 mmol/DNyfdpo489-173Nck [facility] Comment on above:Performed By: #### LIPID, TSH, T7, CMP, URIC #### [facility] [address] [place] [address] Dr. Cheryl PickeringUrea nitrogen [Mass/Vol]23.0 mg/dLCritically high7.0-18.0The [facility] CenterComment on above:Performed By: #### LIPID, TSH, T7, CMP, URIC #### [facility] [address] [address] [address] Cheryl PickeringUrea nitrogen/Creatinine [Mass ratio]18.3 mg/mgNormalThe [facility] CenterComment on above:Performed By: #### LIPID, TSH, T7, CMP, URIC #### [facility] [address] [place] [address] Dr. Cheryl Jasmine 17-99-2346ZSI5.928 uIU/mLNormal0.358-3.740The [facility] CenterComment on above:Performed By: #### LIPID, TSH, T7, CMP, URIC #### [facility] [address] [address] [address] Cheryl PickeringURIC ACID SERUMon 92-39-7409Hwgln [Mass/Vol]8.3 mg/dLCritically high3.5-7.2The [facility] CenterComment on above:Performed By: #### LIPID, TSH, T7, CMP, URIC #### [facility] [address] [place] [address] Dr. Cheryl Pickering Vital Signs Date TimeVital SignValuePerforming HmowaqupkFeyvjtpi78-02-7398 09:13-0400Blood Pressure LocationKathy Lue [facility]07-03-2024 09:13-0400Diastolic blood lsyxynrx39 mm[Hg]Telma Lue [facility]07-03-2024 09:13-0400Heart rate55 /minKathy Lue [facility]07-03-2024 09:13-0400Respiratory rate16 /minKathy Lue [facility]07-03-2024 09:13-0400Systolic blood uztpkxug706 mm[Hg]Telma Lue [facility]11-08-2023 08:42-0500Blood Pressure LocationKathy Lue [facility]11-08-2023 08:42-0500Diastolic blood vjijwtby74 mm[Hg]Telma Lue [facility]11-08-2023 08:42-0500Heart rate70 /minKathy Lue [facility]11-08-2023 08:42-0500Respiratory rate16 /minKathy Lue [facility]11-08-2023 08:42-0500Systolic blood egykswpg959 mm[Hg]Telma Lue [facility]05-03-2023 10:09-0400Blood Pressure LocationKathy Lue [facility]05-03-2023 10:09-0400Diastolic blood mghusvto51 mm[Hg]Telma Lue [facility]05-03-2023 10:09-0400Heart rate80 /minKathy Lue [facility]05-03-2023 10:09-0400Respiratory rate16 /minKathy Lue [facility]05-03-2023 10:09-0400Systolic blood eywtscrn463 mm[Hg]Telma Lue [facility]11-23-2022 11:00-0500Blood Pressure LocationKathy Lue [facility]11-23-2022 11:00-0500Diastolic blood zimdquok68 mm[Hg]Telma Lue [facility]11-23-2022 11:00-0500Heart rate66 /minKathy Lue [facility]11-23-2022 11:00-0500Respiratory rate16 /minKathy Lue [facility]11-23-2022 11:00-0500Systolic blood rzxyghms078 mm[Hg]Telma Lue [facility] Encounters Encounter DateEncounter TypeCare ProviderFacilityStart: 13-09-4692hercswiitf Madiha TannaFacility:EU [place]vueStart: 72-17-0795rmmgghaouhKbuaw M. Lue Facility:EU ueStart: 06-09-2025 End: 70-63-6668lfsxbgtbfwLwxbs M. LueFacility:EU [place]Start: 06-09-2025 End: 84-23-5120Cboeykv encounter procedureKathy M. Lue [facility] start: 06-02-2025 End: 49-65-1435ourqytvuhuYxhcs M. LueFacility:MCStart: 06-02-2025 End: 51-94-9162Wpnrjcw encounter procedureKathy M. Lue [facility] start: 12-09-2024 End: 48-82-8037ytkoazwfxsLgakm MToño LueFacility:EU [place]Start: 09-28-2024 End: 07-22-3212Fke Drop offMelvipau FlowerToño [facility] Start: 09-28-2024 End: 46-02-0978mazptwifavPcuop ChingToño LueFacility:EU [place]vueStart: 09-28-2024 End: 11-64-9069Eeoygoh encounter procedureTelma Milliganulysses [facility] start: 03-25-2024 End: 63-17-8537ltvbhzfygtFahdk M. LueFacility:EU [place]Start: 03-25-2024 End: 71-06-1716Iovtqbg encounter procedureTelma Molina [facility] start: 10-07-2023 End: 89-79-8566iutqlvrthdMscuimi M MalachiFacility:[facility] Start: 10-07-2023 End: 71-72-6268twwffsigvyME Edouard Ly Work Phone: [facility] Work Phone: Start: 10-07-2023 End: 67-44-1659Fzsxfdo encounter procedureMD Edouard Ly Work Phone: [facility] [place] Work Phone: Start: 07-31-2023 End: 96-50-3520Ysqpemb encounter procedureTelma ChingToño Milliganulysses [facility] start: 01-23-2023 End: 31-17-6331Juwnlel encounter procedureTelma Milliganulysses [facility] start: 01-21-2023 End: 35-14-5546cvjlkuewoiVBCGY M LUE .Facility:K9Ksika: 08-15-2022 End: 36-72-4539Eriggju encounter procedureTelma Molina [facility] start: 07-10-2022 End: 44-49-8746bywtoterckKH EDOUARD HOY .Facility:T1Nfyuh: 07-09-2022 End: 37-01-6078rureoabogxED EDOUARD HOY .Facility: Procedures DateProcedureProcedure DetailPerforming ClinicianStart: 38-93-0362ISZ screening TELMA MOLINA .Comment on above:Performed By: #### PSASC #### [facility] [address] [place] [address] Dr. Cheryl [facility]essent[facility] structure (morphologic abnormality)Telma Molina History of operative procedure on hipTelma Molina Knee region structure (body structure)Telma Molina Plan of Treatment DateCare ActivityDetailAuthorStart: 73-27-6687BS Prostate WO and W contrast [facility]tart: 63-92-6701UT prostate wo/w conMR prostate wo/w [facility] Immunizations Immunization DateImmunizationNotesCare KcofzrluDcevuwfv57-59-9046ACNQ-VfM-6 (COVID-19) mRNA-1273 vaccineKathy Lue [facility] on above:Result Comment: 2022-08-15: [id number]-ZxR-4 (COVID-19) mRNA-1273 vaccineKathy Lue [facility] Centerment on above:Result Comment: 2022-08-15: [id number] Payers DatePayer CategoryPayerPolicy ID2025Medicare [id number] Health Insurance [id number] 2023Self-pay2022Medicare [id number] [id number] [id number] 1960 [id number] 2.16840.1.295845.3.579.2. [id number] 2.840.1.670965.3.57[id number] 2.840.1.881818.3.57[id number] 2.16840.1.408619.3.57[id number] 2.840.1.521908.3.57[id number] 2.160.1.704282.3.57[id number] 2.16840.1.965216.3.57[id number] 2.16840.1.465830.3.57[id number] 2.16840.1.057971.3.57[id number] 2.16840.1.848028.3.57[id number] 2..840.1.109506.3.57[id number] 2.16.840.1.035813.3.57[id number] 2..0.1.975960.3.57[id number] 2.16.840.1.371212.3.57[id number] [id number]-cfo3-12c7-xrmv-[id number] 2..840.1.080811.3.579.2.531 Social History DateTypeDetailFacilityStart: 08-15-2022 End: 96-17-2271Mobfnac smoking statusEx-smoker (finding)[facility] SystemTobaamerican hospital association smoking statusFormer smokeless tobacco user, quit more than 30 days agoExec[facility] of [facility] Assigned At [facility] Start: 19-87-6112Vzk Assigned At [facility] Sexual OrientationExec[facility] sexMale (finding)[facility] Functional Status OkgeLjnjtzcyubKvlhokDeaqvfpc06-20-4484Gkneixclbt StatusN/AExec[facility]11-08-2023Functional StatusN/AExec[facility]05-03-2023Functional StatusN/A [facility]11-23-2022Functional StatusN/AExec[facility] Clinical Notes 08-15-2022 to 06-09-2025 Note Date & UppyTammVsncxida11-25-6567 Hospital Discharge instructions Patient Education 06/09/2025 10:52:29 Prostate Cancer Screening Prostate Cancer Screening Prostate cancer screening is testing that is done to check for the presence of prostate cancer in men. The prostate gland is a walnut-sized gland that is located below the bladder and in front of therectum in males. The function of the prostate is to add fluid to semen during ejaculation. Prostatecancer is one of the most common types of cancer in men. Who should have prostate cancer screening? Screening recommendations vary based on age and other risk factors, as well as between the professional organizations who make the recommendations. In general, screening is recommended if: You are age 50 to 70 and have an average risk for prostate cancer. You should talk with your healthcare provider about your need for screening and [...] diagnosed with prostate cancer. The risk is higherif your family member's cancer occurred at an early age or if you have multiple family members withprostate cancer at an early age. ?Being a [...] is a blood test called the prostate-specific antigen(PSA) test. PSA is a protein that is [...] treatment? Where to find more information The [place] [employer]: www.cancer.org [employer] [employer]: www.auanet.org Contact a health care [...] the recommended screening test for prostate cancer, butit has associated risks. Discuss the risks and [...] provider. Document Revised: 03/05/2022 Document Reviewed: 03/05/2022 [employer] Patient Education 2023 [employer]. Follow Up Care 12/09/2024 11:03:50 With:Jesse ALONSO, QUIN Cerda, URO Address: When: Unknown [facility] [employer] 09-17-2025 NotePatient Education Oncology Prostate Cancer Screening Prostate cancer screening is testing that is done to check for the presence of prostate cancer in men. The prostate gland is a walnut-sized gland that is located below the bladder and in front of therectum in males. The function of the prostate is to add fluid to semen during ejaculation. Prostatecancer is one of the most common types of cancer in men. Who should have prostate cancer screening? Screening recommendations vary based on age and other risk factors, as well as between the professional organizations who make the recommendations. In general, screening is recommended if: ??? You are age 50 to 70 and [...] have a 10- to 15-year life expectancy. ??? You are younger than age 50, and [...] In general, screening is not recommended if: ??? You are younger than age 40. ??? You are between the ages of 40 and 49 and you have no risk factors. ??? You are 70 years of age or [...] is a blood test called the prostate-specific antigen(PSA) test. PSA is a protein that is made in the prostate. As you age, your prostate naturally produces more PSA. Abnormally high PSA levels may be caused by: ??? Prostate cancer. ??? An enlarged prostate that is not caused by cancer (benign prostatic hyperplasia, or BPH). This condition is very common in older men. ??? A prostate gland infection (prostatitis) or urinary tract infection. ??? Certain medicines such as male hormones (like [...] you may need more tests, such as: ??? A physical exam to check the size of your prostate gland, if not done as part of screening. ??? Blood and imaging tests. ??? A procedure to remove tissue samples from your prostate gland for testing (biopsy). This is theonly way to know for certain if you have prostate cancer. What are the benefits of prostate cancer screening? Screening can help to identify cancer at an early stage, before symptoms start and when the cancer can be treated more easily. ??? There is a small chance that screening [...] Questions to ask your health care provider ??? When should I start prostate cancer screening? What is my risk for prostate cancer? How often do I need screening? What type of screening tests do I need? How do I get my test results? What do my results mean? Do I need treatment? Where to find more information ??? The [place] [employer]: www.cancer.org ??? [place] [employer]: www.auanet.org Contact a health care provider if: ??? You have difficulty urinating. ??? You have pain when you urinate or ejaculate. ??? You have blood in your urine or semen. ??? You have pain in your back or in the area of your prostate. Summary ??? Prostate cancer is a common type of cancer in men. The prostate gland (more content not included)...[facility]03-19-2025 NotePatient Education Oncology Prostate Cancer Screening Prostate cancer screening is testing that is done to check for the presence of prostate cancer in men. The prostate gland is a walnut-sized gland that is located below the bladder and in front of therectum in males. The function of the prostate is to add fluid to semen during ejaculation. Prostatecancer is one of the most common types of cancer in men. Who should have prostate cancer screening? Screening recommendations vary based on age and other risk factors, as well as between the professional organizations who make the recommendations. In general, screening is recommended if: ??? You are age 50 to 70 and [...] have a 10- to 15-year life expectancy. ??? You are younger than age 50, and [...] In general, screening is not recommended if: ??? You are younger than age 40. ??? You are between the ages of 40 and 49 and you have no risk factors. ??? You are 70 years of age or [...] is a blood test called the prostate-specific antigen(PSA) test. PSA is a protein that is made in the prostate. As you age, your prostate naturally produces more PSA. Abnormally high PSA levels may be caused by: ??? Prostate cancer. ??? An enlarged prostate that is not caused by cancer (benign prostatic hyperplasia, or BPH). This condition is very common in older men. ??? A prostate gland infection (prostatitis) or urinary tract infection. ??? Certain medicines such as male hormones (like [...] you may need more tests, such as: ??? A physical exam to check the size of your prostate gland, if not done as part of screening. ??? Blood and imaging tests. ??? A procedure to remove tissue samples from your prostate gland for testing (biopsy). This is theonly way to know for certain if you have prostate cancer. What are the benefits of prostate cancer screening? Screening can help to identify cancer at an early stage, before symptoms start and when the cancer can be treated more easily. ??? There is a small chance that screening [...] Questions to ask your health care provider ??? When should I start prostate cancer screening? What is my risk for prostate cancer? How often do I need screening? What type of screening tests do I need? How do I get my test results? What do my results mean? Do I need treatment? Where to find more information ??? The [place] [employer]: www.cancer.org ??? [employer]rological Association: www.auanet.org Contact a health care provider if: ??? You have difficulty urinating. ??? You have pain when you urinate or ejaculate. ??? You have blood in your urine or semen. ??? You have pain in your back or in the area of your prostate. Summary ??? Prostate cancer is a common type of cancer in men. The prostate gland (more content not included)...[facility]07-03-2024 Hospital Discharge instructions Patient Education 03/25/2024 10:03:06 Prostate Cancer Screening Prostate Cancer Screening Prostate cancer screening is testing that is done to check for the presence of prostate cancer in men. The prostate gland is a walnut-sized gland that is located below the bladder and in front of therectum in males. The function of the prostate is to add fluid to semen during ejaculation. Prostatecancer is one of the most common types of cancer in men. Who should have prostate cancer screening? Screening recommendations vary based on age and other risk factors, as well as between the professional organizations who make the recommendations. In general, screening is recommended if: You are age 50 to 70 and have an average risk for prostate cancer. You should talk with your healthcare provider about your need for screening and [...] diagnosed with prostate cancer. The risk is higherif your family member's cancer occurred at an early age or if you have multiple family members withprostate cancer at an early age. ?Being a [...] is a blood test called the prostate-specific antigen(PSA) test. PSA is a protein that is [...] treatment? Where to find more information The [place] [employer]: www.cancer.org [place] [employer]: www.auanet.org Contact a health care [...] the recommended screening test for prostate cancer, butit has associated risks. Discuss the risks and [...] provider. Document Revised: 03/05/2022 Document Reviewed: 03/05/2022 [employer] Patient Education 2022 Acsis. Follow Up Care 10/10/2023 13:43:31 With:Jesse ALONSO, Telma M., URL, URO Address: [address] [place] [phone] When: Unknown Comments:6 mos w/ PSA [facility] 07-03-2024 NotePatient Education Oncology Prostate Cancer Screening Prostate cancer screening is testing that is done to check for the presence of prostate cancer in men. The prostate gland is a walnut-sized gland that is located below the bladder and in front of therectum in males. The function of the prostate is to add fluid to semen during ejaculation. Prostatecancer is one of the most common types [...] , screening in this age group is generallyreserved for men who have a 10- to [...] is a blood test called the prostate-specific antigen(PSA) test. PSA is a protein that is [...] cancer, and most men with prostate cancer diefrom a different cause. What are the risks [...] Where to find more information ? The [place] [employer]: www.cancer.org ? [place] [employer]: www.auanet.org Contact a health care [...] front of the rectum. (more content not included)...[facility]11-08-2023 Hospital Discharge instructions Patient Education 07/31/2023 09:24:18 Prostate Cancer Screening Prostate Cancer Screening Prostate cancer screening is testing that is done to check for the presence of prostate cancer in men. The prostate gland is a walnut-sized gland that is located below the bladder and in front of therectum in males. The function of the prostate is to add fluid to semen during ejaculation. Prostatecancer is one of the most common types of cancer in men. Who should have prostate cancer screening? Screening recommendations vary based on age and other risk factors, as well as between the professional organizations who make the recommendations. In general, screening is recommended if: You are age 50 to 70 and have an average risk for prostate cancer. You should talk with your healthcare provider about your need for screening and [...] diagnosed with prostate cancer. The risk is higherif your family member's cancer occurred at an early age or if you have multiple family members withprostate cancer at an early age. ?Being a [...] is a blood test called the prostate-specific antigen(PSA) test. PSA is a protein that is [...] treatment? Where to find more information The [place] [employer]: www.cancer.org [place] [employer]: www.auanet.org Contact a health care [...] the recommended screening test for prostate cancer, butit has associated risks. Discuss the risks and [...] provider. Document Revised: 03/05/2022 Document Reviewed: 03/05/2022 [employer] Patient Education 2022 Acsis. Follow Up Care 01/23/2023 10:58:25 With:Jesse ALONSO, QUIN Cerda, URO Address: When: Unknown [facility] 05-03-2023 Hospital Discharge instructions Patient Education 01/23/2023 10:32:57 Prostate Cancer Screening Prostate Cancer Screening Prostate cancer screening is testing that is done to check for the presence of prostate cancer in men. The prostate gland is a walnut-sized gland that is located below the bladder and in front of therectum in males. The function of the prostate is to add fluid to semen during ejaculation. Prostatecancer is one of the most common types of cancer in men. Who should have prostate cancer screening? Screening recommendations vary based on age and other risk factors, as well as between the professional organizations who make the recommendations. In general, screening is recommended if: You are age 50 to 70 and have an average risk for prostate cancer. You should talk with your healthcare provider about your need for screening and [...] diagnosed with prostate cancer. The risk is higherif your family member's cancer occurred at an early age or if you have multiple family members withprostate cancer at an early age. ?Being a [...] is a blood test called the prostate-specific antigen(PSA) test. PSA is a protein that is [...] treatment? Where to find more information The [place] [employer]: www.cancer.org [place] [employer]: www.auanet.org Contact a health care [...] the recommended screening test for prostate cancer, butit has associated risks. Discuss the risks and [...] provider. Document Revised: 03/05/2022 Document Reviewed: 03/05/2022 Else[employer] Patient Education 2022 Acsis. Follow Up Care 08/29/2022 13:40:32 With:Jesse ALONSO, QUIN Cerda, URO Address: When: Unknown [facility] 11-23-2022 Hospital Discharge instructions Patient Education 08/15/2022 11:37:20 Prostate Cancer [...] done before cancer symptoms start. Screening can helpto identify cancer at an early stage, when [...] if you need screening if you have oneof these risk factors: ?Being of -[place] descent. ?Having a family history of prostate [...] you: Are older than age 55. Are -[place]. Have a father, brother, or uncle who [...] not tell you if your cancer needs natalie treated. Slow-growing prostate cancer may not need [...] 06/20/2018 Document Revised: 08/22/2018 Document Reviewed: 06/20/2018 [employer] Patient Education 2020 Acsis. Follow Up Care 07/18/2022 09:56:03 With:Jesse ALONSO, Telma Mitchell, UR, URO Address: When:6 months Comments:Depending select mdx results [facility] [employer] evaluation + Plan note No data available for this section [facility] [employer] evaluation + Plan note Future Appointments Appointment Date:07/31/2023 08:45:00 AM Scheduled Provider:Telma Molina MD Location:[facility] Appointment Type:URO Office Visit Diagnostic Tests Pending * PSA Free & Total 01/23/23 [facility] evaluation + Plan note Future Appointments Appointment Date:10/07/2024 08:45:00 AM Scheduled Provider:Telma Molina MD Location:[facility] Appointment Type:URO Office Visit Diagnostic Tests Pending * PSA Free & Total 03/25/24 [facility] evaluation + Plan note Future Appointments Appointment Date:12/09/2024 10:00:00 AM Scheduled Provider:Telma Molina MD Location:[facility] Appointment Type:URO Office Visit Future Scheduled Tests Laboratory* PSA Free & Total 09/28/24 [facility] [employer] evaluation + Plan note Future Appointments Appointment Date:06/09/2025 09:45:00 AM Scheduled Provider:Telma Molina MD Location:[facility] Appointment Type:URO Office Visit Future Scheduled Tests Laboratory* PSA Free & Total 09/28/24 [facility] [employer] evaluation + Plan note Future Appointments Appointment Date:11/30/2025 09:00:00 AM Scheduled Provider: Location:[facility] Appointment Type:URO Nurse Visit Appointment Date:12/07/2025 09:00:00 AM Scheduled Provider:Madiha Craft PA-C Location:[facility] Appointment Type:URO Office Visit Future Scheduled Tests Laboratory* PSA Free & Total 11/21/25 * PSA Free & Total 09/28/24 [facility] evaluation noteNo assessment information available [facility] Work Phone: Hospital Discharge instructions No data available for this section [facility] progress note No data available for this section [facility] Summary Purpose Family History No Family History Records Found No data available for this section No Family History Records Found No data available for this section No data available for this section No data available for this section No Family History Records Found No data available for this section No data available for this section No Family History Records FoundNo Family History Records Found Advance Directives No [...] Dates Telma Molina MD Attending Provider [facility] ProviderActive (unrecognized sect ion and content) No Status Records FoundNo Status Records FoundNo Status Records FoundNo Status Records FoundNo Status Records Found INFORMATION SOURCE (unrecogn ized section and content) DATE CREATED AUTHOR 01/26/2023 [facility] DATE CREATED AUTHOR AUTHOR'S ORGANIZ ATION 10/12/2023 [facility] DATE CREATED AUTHOR AUTHOR'S ORGANIZ ATION 12/11/2024 [facility] DATE CREATED AUTHOR AUTHOR'S ORGANIZ ATION 06/10/2025 [facility] DATE CREATED AUTHOR AUTHOR'S ORGANIZ ATION 06/11/2025 [facility] Goals (unrecognized section and content) Goals may [...] BE BASED ON THE PRIMARY CLINICAL RECORDS. [facility] provides no warranty or guarantee of the accuracy or completeness of information in this document.
[2025-07-21 10:05] LABS: Hematocrit 42.9 % (42.0-54.0); Hemoglobin 14.7 g/dL (14.0-18.0); Immature Granulocytes Abs Auto 0.03 10^3/uL (0.00-0.03); Immature Granulocytes Pct Auto 0.3 % (0.0-0.5); Lymphocytes Absolute Auto 1.3 10^3/uL (1.2-3.8); Mean Corpuscular HGB Conc 34.3 g/dL (29.9-35.2); Mean Corpuscular Hemoglobin 33.7 pg (25.9-34.0); Mean Corpuscular Volume 98.4 fL (80.0-94.0); Platelet Count 217 10^3/uL (150-450); Red Blood Count 4.36 10^6/uL (4.70-6.10); White Blood Count 8.8 10^3/uL (4.0-11.0)
[2025-07-21 11:30] LABS: Alanine Aminotransferase 14 U/L (16-63); Albumin Globulin Ratio 1.1; Albumin Level 3.6 g/dL (3.4-5.0); Alkaline Phosphatase 57 U/L (46-116); Anion Gap 10.9; Aspartate Amino Transferase 15 U/L (15-37); Blood Urea Nitrogen 19.0 mg/dL (7.0-18.0); Calcium 10.0 mg/dL (8.5-10.1); Carbon Dioxide 27.3 mmol/L (21.0-32.0); Chloride 104 mmol/L (98-107); Cholesterol 207 mg/dL (<=200); Estimated GFR (African America >60 (>=60 mL/min/1.73m^2); Estimated GFR (Non-African Ame 56 (>=60 mL/min/1.73m^2); Free T3 2.43 pg/mL (2.18-3.98); Globulin 3.3 g/dL; Glucose 98 mg/dL (74-106); HDL Cholesterol 40 mg/dL (40-60); Potassium 4.2 mmol/L (3.5-5.1); Sodium 138 mmol/L (136-145); Thyroid Stimulating Hormone 1.661 uIU/mL (0.358-3.740); Total Protein 6.9 g/dL (6.4-8.2); Triglycerides 95 mg/dL (<=150); Uric Acid 8.0 mg/dL (3.5-7.2); VLDL CHOLESTEROL 19.0 mg/dL
[2025-07-22 04:07] LABS: PSA, Free 0.69 ng/mL
== END 2025-07-21 09:23 | disposition home or self-care (01) ==
LOC: LAB 09:25
PROVIDERS: PCP Family Medicine; Visit Provider Family Medicine
DX: R73.09 Other abnormal glucose (principal); I10 Essential (primary) hypertension; E78.00 Pure hypercholesterolemia, unspecified; R97.20 Elevated prostate specific antigen [PSA]; M25.50 Pain in unspecified joint; Z12.5 Encounter for screening for malignant neoplasm of prostate; M10.9 Gout, unspecified; E03.9 Hypothyroidism, unspecified; D50.9 Iron deficiency anemia, unspecified
CPT/HCPCS: 36415; 80053; 80061; 83036; 84153; 84154; 84436; 84443; 84481; 84550; 85025